=== PATIENT | male | born 1955 | race African-American/Black ===

== ENCOUNTER 2017-06-05 13:05 | Inpatient (IN) | payer BC ==
[~2017-06-05] VITALS: Ht 185.4 cm; Wt 77.2 kg
[~2017-06-05 13:05] MED LIST: COLACE100 M1 PO; COUMADIN5 M2 PO; PERCOCET 5-3251 EACH PO
[2017-06-05 13:49] LABS: ABSOLUTE BASOPHIL COUNT 0.1 /CUMM (0.0-0.2); ABSOLUTE EOSINOPHIL COUNT 0.1 /CUMM (0.0-0.7); ABSOLUTE GRANULOCYTE CT 4.1 /CUMM (1.4-6.5); ABSOLUTE LYMPH COUNT 1.4 /CUMM (1.2-3.4); BASOPHIL % 0.9 % (0.0-2.0); EOSINOPHIL % 1.1 % (0-5); GRANULOCYTE % 62.2 % (42.2-75.2); HEMATOCRIT 49.6 % (42-52); MEAN CORPUSCULAR HGB CONC 33.8 G/DL (33.0-37.0); MEAN CORPUSCULAR VOLUME 88.6 FL (80.0-94.0); MEAN PLATELET VOLUME 8.5 FL (7.4-10.4); PLATELET COUNT 208 /CUMM (130-400); RBC DISTRIBUTION WIDTH 12.4 % (11.5-14.5); RED BLOOD CELL CT 5.59 /CUMM (4.70-6.10); WHITE BLOOD CELL COUNT 6.6 /CUMM (4.8-10.8)
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
--- NOTE | 2017-06-05 15:07 | CT SCAN REPORT ---
EXAMINATION: CT ABDOMEN AND PELVIS WITH CONTRAST CLINICAL INFORMATION: Small bowel obstruction. Abdominal pain. Multiple prior surgeries. COMPARISON: CT scan abdomen pelvis 08/10/2013 TECHNIQUE: Multidetector volumetric imaging was performed of the abdomen and pelvis following IV administration of 94 mL of Optiray 320 intravenous contrast. Sagittal and coronal reformatted images were obtained on the technologist's workstation. DLP: 321.54 mGy-cm FINDINGS: LUNG BASES: The visualized lung bases are unremarkable. LIVER, GALLBLADDER, AND BILIARY TREE: The liver is normal in size, shape, and attenuation. No focal hepatic lesion or biliary ductal dilatation is present. There are multiple small calcified gallstones layering dependently in the neck of the gallbladder. There is no edema around the gallbladder. There is no bile duct dilatation. The extrahepatic CBD measures 5 mm. PANCREAS: Unremarkable. SPLEEN: Unremarkable. ADRENAL GLANDS: Unremarkable. KIDNEYS AND URETERS: The kidneys are normal in size, shape, and attenuation. No hydronephrosis, hydroureter, or calculi seen. No perinephric stranding. BLADDER: Unremarkable. GASTROINTESTINAL TRACT: There is a high-grade small bowel obstruction. Marked distention with air-fluid levels of the proximal and mid small bowel loops. The distal small bowel is decompressed. Transition point is in the left lower quadrant. No distention of the colon. Scattered stool in the colon. The appendix is not identified. MESENTERY: No free air or free fluid. No inflammation. ABDOMINAL WALL: No significant hernia is appreciated. LYMPH NODES: Normal. VASCULAR: Unremarkable. PELVIC VISCERA: Prostate measures 4.9 cm transverse. OSSEOUS STRUCTURES: Status post right hip replacement. Marked arthropathy of the left hip with [id number] contact between femoral head and acetabulum with subchondral cystic changes of the acetabulum femoral head and large bone spurs. Moderate degenerative spondylosis spine with endplate spurring of the lower thoracic and lumbar spine vertebrae. IMPRESSION: 1. High-grade small bowel obstruction. 2. Cholelithiasis. This critical result was discussed with Dr. Clemens on 06/05/2017, 3:00 PM and it was ascertained that the content and urgency of the report was understood at the time of direct communication.
--- NOTE | 2017-06-05 16:26 | History & Physical ---
Soumya Oviedo 06/05/17 1624: General Information and HPI MD Statement: I have seen and personally examined CHERELLE ZAMORA and documented this H&P. The patient is a 61 year old M who presented with a patient stated chief complaint of []. Source of Information: patient Exam Limitations: no limitations History of Present Illness: PT PRESENTS TO ED FROM HOME WITH COMPLAINTS OF NAUSEA AND VOMITING WITH ABDOMINAL PAIN THAT STARTED SUDDENLY 3 DAYS AGO ON 06/02/17. STATES THAT EVERYTIME HE TRIES TO EAT OR DRINK ANYTHING HE VOMITS. DID NOT HAVE A BM FOR THREE DAYS BUT HE DID FINALLY HAVE A BM THIS MORNING AND HAS PASSED FLATUS SINCE BEING IN THE ED. NO BLODDY STOOLS OR EMISIS. NOTES DECREASED URINATION, NO DYSUREA. DENIES CP/SOB/DEWITT Allergies/Medications Allergies: Coded Allergies: NO KNOWN ALLERGIES (10/28/15) Past History Travel History Traveled to [place] past 21 day No Medical History Cardiovascular: hypertension History of MRSA: No History of VRE: No History of CDIFF: No Surgical History Surgical History: EXPLORATORY LAPORATOMY Review of Systems Review of Systems Constitutional: Denies: fever. Cardiovascular: Denies: chest pain. Respiratory: Denies: short of breath. GI: Reports: abdominal pain, nausea, vomiting. Denies: diarrhea, bloody stool. Genitourinary: Denies: dysuria. Exam & Diagnostic Data Last 24 Hrs of Vital Signs/I&O Vital Signs Date Time Temp Pulse Resp B/P B/P Pulse O2 O2 Flow FiO2 Mean Ox Delivery Rate 06/05 1511 Room Air 06/05 1455 96.2 88 20 156/72 97 Room Air 06/05 1327 96.1 101 20 196/79 99 Room Air Intake & Output 06/05 1600 06/05 0800 06/05 0000 Intake Total Output Total Balance Patient 180 lb Weight Weight Reported by Patient Measurement Method Physical Exam General Appearance Alert, No Acute Distress Skin No Rashes (WARM AND DRY) HEENT Atraumatic, EOMI, Mucous Membr. moist/pink Neck Supple (NO BRUITS), No JVD (SUBMANDIBULAR LYMPHADENOPATHY) Cardiovascular Regular Rate, Normal S1, Normal S2 Lungs Clear to Auscultation, Normal Air Movement Abdomen Soft (TENDER TO PALPATION ON LEFT ), No Tenderness (MINIMAL GAURDING), No Hepatospenomegaly (MIDLINE SCAR), No Masses (NO PERITONEAL SIGNS) Neurological Normal Speech, Sensation Intact Extremities No Edema, Normal Pulses Last 24 Hrs of Labs/Tyson: Laboratory Tests 06/05/17 1338: Anion Gap 16, Estimated GFR > 60, BUN/Creatinine Ratio 20.9, Glucose 127 H, Lactic Acid 1.4, Calcium 10.1, Total Bilirubin 3.3 H, AST 43, ALT 30, Alkaline Phosphatase 104, Troponin I < 0.01, Total Protein 7.9, Albumin 4.6, Globulin 3.3 , Albumin/Globulin Ratio 1.4, Amylase 50, Lipase 41, CBC w Diff NO MAN DIFF REQ, RBC 5.59, MCV 88.6, MCH 30.0, MCHC 33.8, RDW 12.4, MPV 8.5, Gran % 62.2, Lymphocytes % 20.8, Monocytes % 15.0 H, Eosinophils % 1.1, Basophils % 0.9, Absolute Granulocytes 4.1, Absolute Lymphocytes 1.4, Absolute Monocytes 1.0 H, Absolute Eosinophils 0.1, Absolute Basophils 0.1 Diagnostic Data Other Results SERVICE DATE: 06/05/17 EXAM TYPE: CAT - CT ABD & PELVIS W IV CONTRAST EXAMINATION: CT ABDOMEN AND PELVIS WITH CONTRAST CLINICAL INFORMATION: Small bowel obstruction. Abdominal pain. Multiple prior surgeries. COMPARISON: CT scan abdomen pelvis 08/10/2013 TECHNIQUE: Multidetector volumetric imaging was performed of the abdomen and pelvis following IV administration of 94 mL of Optiray 320 intravenous contrast. Sagittal and coronal reformatted images were obtained on the technologist's workstation. DLP: 321.54 mGy-cm FINDINGS: LUNG BASES: The visualized lung bases are unremarkable. LIVER, GALLBLADDER, AND BILIARY TREE: The liver is normal in size, shape, and attenuation. No focal hepatic lesion or biliary ductal dilatation is present. There are multiple small calcified gallstones layering dependently in the neck of the gallbladder. There is no edema around the gallbladder. There is no bile duct dilatation. The extrahepatic CBD measures 5 mm. PANCREAS: Unremarkable. SPLEEN: Unremarkable. ADRENAL GLANDS: Unremarkable. KIDNEYS AND URETERS: The kidneys are normal in size, shape, and attenuation. No hydronephrosis, hydroureter, or calculi seen. No perinephric stranding. BLADDER: Unremarkable. GASTROINTESTINAL TRACT: There is a high-grade small bowel obstruction. Marked distention with air-fluid levels of the proximal and mid small bowel loops. The distal small bowel is decompressed. Transition point is in the left lower quadrant. No distention of the colon. Scattered stool in the colon. The appendix is not identified. MESENTERY: No free air or free fluid. No inflammation. ABDOMINAL WALL: No significant hernia is appreciated. LYMPH NODES: Normal. VASCULAR: Unremarkable. PELVIC VISCERA: Prostate measures 4.9 cm transverse. OSSEOUS STRUCTURES: Status post right hip replacement. Marked arthropathy of the left hip with [id number] contact between femoral head and acetabulum with subchondral cystic changes of the acetabulum femoral head and large bone spurs. Moderate degenerative spondylosis spine with endplate spurring of the lower thoracic and lumbar spine vertebrae. IMPRESSION: 1. High-grade small bowel obstruction. 2. Cholelithiasis. This critical result was discussed with Dr. Clemens on 06/05/2017, 3:00 PM and it was ascertained that the content and urgency of the report was understood at the time of direct communication. 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 WILL ADMIT FOR OBSERVATION. BOWEL FUNCTION MAY RETURN SOON PT PASSED FLATUS IN ED AND HAD A BM THIS AM. WILL TRY CONSERVATIVE MANAGEMENT WITH BOWEL REST, IF PT STARTS TO VOMIT AGAIN WILL PLACE NGT. NO NEED FOR SURGICAL IINTERVENTION AT THIS TIME BUT WE WILL FOLLOW HIS PROGRESS CLOSELY ADMIT FOR OBSERVATION NPO WITH IVF, WILL PLACE NGT IF PT STARTS TO VOMIT AGAIN PAIN MANAGEMENT ENCOURAGE AMBULATION DR FARNSWORTH TO SEE THE PATIENT As Ranked By This Provider Problem List: 1. SBO (small bowel obstruction) Core Measures/Misc (12/09) Acute Coronary Syndrome ACS Diagnosis: No Congestive Heart Failure Congestive Heart Failure Diagnosis No Cerebrovascular Accident CVA/TIA Diagnosis: No VTE (View Protocol) VTE Risk Factors Age>40 No Mechanical VTE Prophylaxis d/t N/A MechProphylax Ordered No VTE Pharm Prophylaxis d/t LowRisk-No Interven Req'd Sepsis (View protocol) Sepsis Present: No Erik Farnsworth MD 06/05/17 1711: General Information and HPI MD Statement: I have seen and personally examined CHERELLE ZAMORA and documented this H&P. The patient is a 61 year old M who presented with a patient stated chief complaint of [abdominal pain and vomiting.]. Allergies/Medications Home Med list No Known Home Medications Attending MD Review Statement Attending Statement Attending MD Statement: examined this patient, reviewed images Attending Assessment/Plan: sbo presumed to be due to adhesions from prior laparotomy. Full admission due to need ofr 2-3 days of inpatient medical management of intestinal obstruction and possibility of surgical intervention, should medical managment fail. No clinical or radiographic indication for emergent surgical intervention.
[2017-06-05 18:30] VITALS: BP 143/74
[2017-06-05 22:00] VITALS: BP 144/71
[2017-06-06 06:52] VITALS: BP 146/75
[2017-06-06 08:08] VITALS: BP 142/70
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
[2017-06-06 10:03] LABS: ABSOLUTE BASOPHIL COUNT 0 /CUMM (0.0-0.2); ABSOLUTE EOSINOPHIL COUNT 0 /CUMM (0.0-0.7); ABSOLUTE GRANULOCYTE CT 2.2 /CUMM (1.4-6.5); ABSOLUTE LYMPH COUNT 0.3 /CUMM (1.2-3.4); ABSOLUTE MONOCYTE COUNT 0.5 /CUMM (0.10-0.60); BASOPHIL % 0.1 % (0.0-2.0); EOSINOPHIL % 0.3 % (0-5); GRANULOCYTE % 73.8 % (42.2-75.2); MEAN CORPUSCULAR HGB 30.1 PG (27.0-31.0); MEAN CORPUSCULAR HGB CONC 34.5 G/DL (33.0-37.0); MEAN CORPUSCULAR VOLUME 87.3 FL (80.0-94.0); MEAN PLATELET VOLUME 8.6 FL (7.4-10.4); PLATELET COUNT 173 /CUMM (130-400); RBC DISTRIBUTION WIDTH 12.6 % (11.5-14.5); RED BLOOD CELL CT 5.11 /CUMM (4.70-6.10)
[2017-06-06 10:09] LABS: HEMATOCRIT 44.6 % (42-52)
--- NOTE | 2017-06-06 11:05 | RADIOLOGY REPORT ---
EXAMINATION: XR ABDOMEN MULTIPLE VIEWS CLINICAL INDICATION: Worsening abdominal exam. Presumptive diagnosis of small bowel obstruction. COMPARISON: CT scan of the abdomen and pelvis dated 06/05/2017. TECHNIQUE: 2 views of the abdomen performed on 5 images. FINDINGS: There is abnormal distention of multiple small bowel loops in the abdomen with multiple air-fluid levels seen on the upright view. Findings are similar to the previous CT scan. Enteric tube has been placed and is seen projected in the left upper quadrant in region of the stomach. There is some gas seen within the cecum and in the descending colon. No gas is noted in the rectum. No free air is seen lung bases are clear. Total right hip arthroplasty is partially imaged. Mild vertebral spondylosis in lumbar spine noted. IMPRESSION: 1. Persistent abnormal small bowel dilatation with multiple air-fluid levels. Findings are unchanged from prior CT scan and are suspicious for a high-grade partial or complete small bowel obstruction. 2. No evidence of bowel perforation.
[2017-06-06 12:45] VITALS: BP 162/78
[2017-06-06 14:38] VITALS: BP 161/75
[2017-06-06 21:43] VITALS: BP 149/72
[2017-06-07 06:57] VITALS: BP 133/63
[2017-06-07 08:20] LABS: ABSOLUTE BASOPHIL COUNT 0 /CUMM (0.0-0.2); MEAN CORPUSCULAR HGB 29.8 PG (27.0-31.0); MEAN CORPUSCULAR HGB CONC 33.5 G/DL (33.0-37.0); MEAN CORPUSCULAR VOLUME 88.9 FL (80.0-94.0); MEAN PLATELET VOLUME 8.9 FL (7.4-10.4); PLATELET COUNT 165 /CUMM (130-400); RBC DISTRIBUTION WIDTH 12.8 % (11.5-14.5); RED BLOOD CELL CT 4.73 /CUMM (4.70-6.10); WHITE BLOOD CELL COUNT 4.4 /CUMM (4.8-10.8)
--- NOTE | 2017-06-07 08:40 | PN- General Surgery ---
Surgical Brief Attending Note Brief Attending Note: patient with worsening sbo. plan lysis adhesions today.
[2017-06-07 10:47] LABS: ABSOLUTE EOSINOPHIL COUNT 0.1 /CUMM (0.0-0.7); ABSOLUTE GRANULOCYTE CT 2.8 /CUMM (1.4-6.5); ABSOLUTE LYMPH COUNT 0.5 /CUMM (1.2-3.4); ABSOLUTE MONOCYTE COUNT 0.9 /CUMM (0.10-0.60); BASOPHIL % 0.2 % (0.0-2.0); EOSINOPHIL % 1.3 % (0-5)
[2017-06-07 14:17] VITALS: BP 155/70
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
--- NOTE | 2017-06-07 18:45 | RADIOLOGY REPORT ---
EXAMINATION: XR PORTABLE CHEST CLINICAL INFORMATION: Check NG tube placement. COMPARISON: Chest x-ray from 02/29/2016. TECHNIQUE: Portable frontal view of the chest was obtained. FINDINGS: An NG tube courses down the esophagus and coils within the body of the stomach. No airspace opacities or pleural effusions are evident. The cardiomediastinal silhouette is normal. No acute osseous abnormality is seen. IMPRESSION: NG tube coiling in the body of the stomach. Clear lungs.
[2017-06-07 20:25] VITALS: BP 130/80
--- NOTE | 2017-06-07 20:56 | PN- General Surgery ---
Subjective Subjective: POST-OP NOTE Reports incisional pain and sore throat. NG tube replaced in pacu after being pulled back, with xray confirming placement in stomach. He denies shortness of breath. No chest pains. Not yet out of bed. Objective Vital Signs and I&Os Vital Signs Date Time Temp Pulse Resp B/P B/P Pulse O2 O2 Flow FiO2 Mean Ox Delivery Rate 06/07 1417 97.7 97 18 155/70 97 Room Air 06/07 0657 98.8 103 20 133/63 96 Room Air 06/07 0100 96 06/06 2143 97.7 105 19 149/72 96 Room Air Intake & Output 06/07 1600 06/07 0800 06/07 0000 06/06 1600 06/06 0800 06/06 0000 Intake Total 0 935 1000 1000 Output Total 940 794 8208 550 Balance -400 760 -9524 933 6896 Intake, IV 875 1000 1000 Intake, Oral 0 60 0 0 Intake, Other 0 Number 0 0 Bowel Movements Output, 763 098 2990 250 Gastric Drainage Output, Urine 450 300 Patient 176 lb 177 lb 180 lb Weight Weight Bed scale Measurement Method pacu flowsheet reviewed, urine output 150mls during surgery and 150 mls in pacu Physical Exam: General - alert & oriented x 3. uncomfortable. no acute distress. Lungs - clear bilaterally. no w/r/r. Cardiac - s1s2. reg. Abdomen - soft. midline dressing c/d/i. ng tube re-taped to nose, hooked to wall suction - patricia draining rush colored urine Extremities - warm bilaterally. no c/c/e. calves soft and nontender b/l. athrombics in place. Current Medications: Current Medications Sig/Albert Start time Last Medication Dose Route Stop Time Status Admin Acetaminophen 1,000 MG Q6H 06/07 1845 AC N/A 1 UNIT IV 06/08 1259 Dextrose/Sodium 1,000 ML .Q8H 06/05 1645 DC 06/07 Chloride IV 0919 Heparin Sodium 5,000 UNIT Q8 06/07 2200 AC (Porcine) SC Heparin Sodium 5,000 UNIT Q8 06/06 2200 DC 06/07 (Porcine) SC 0516 Morphine Sulfate 6 MG Q2-3 HRS NEEDED.. 06/07 1845 AC IV Morphine Sulfate 2 MG Q2-3 HRS NEEDED.. 06/07 1830 AC IV Morphine Sulfate 4 MG Q2-3 HRS NEEDED.. 06/07 183 AC 06/07 IV 2048 Morphine Sulfate 4 MG .STK-MED ONE 06/07 0218 DC IM 06/07 021 Morphine Sulfate 2 MG Q4P PRN 06/06 2014 DC IV Morphine Sulfate 4 MG Q4P PRN 06/06 2014 DC 06/07 IV 0932 Ondansetron HCl 4 MG Q6P PRN 06/05 1845 DC 06/06 IV 1651 Pantoprazole Sodium 40 MG DAILY 06/08 1000 AC IV Pantoprazole Sodium 40 MG DAILY 06/06 1256 DC 06/07 IV 0919 Phenol 2 SPRAY Q2P PRN 06/07 1830 AC EXT Phenol 2 SPRAY Q2P PRN 06/06 1000 DC 06/06 EXT 1044 Potassium Chloride 20 MEQ CONTINOUS INFUSION 06/07 183 CAN IV Potassium Chloride 20 MEQ Q6H 06/07 183 AC 06/07 Dextrose/Sodium 1,000 ML IV 2047 Chloride Potassium Chloride 10 MEQ Q1H 06/07 0915 DC 06/07 IV 06/07 1016 1140 Sodium Chloride 500 ML BOLUS ONE 06/07 2100 AC IV 06/07 2159 Sodium Chloride 500 ML BOLUS ONE 06/06 2330 DC 06/06 IV 06/07 0029 2322 Sodium Chloride 500 ML BOLUS ONE 06/07 1999 DC 06/06 IV 06/06 2058 2019 Results Last 48 Hours of Labs: Laboratory Tests 06/07 06/06 0714 1301 Chemistry Sodium (137 - 145 mmol/L) 133 L Potassium (3.5 - 5.1 mmol/L) 3.2 L Chloride (98 - 107 mmol/L) 95 L Carbon Dioxide (22 - 30 mmol/L) 26 Anion Gap (5 - 16) 13 BUN (9 - 20 mg/dL) 15 Creatinine (0.7 - 1.2 mg/dL) 1.0 Estimated GFR (>60 ml/min) > 60 BUN/Creatinine Ratio (7 - 25 %) 15.0 Lactic Acid (0.7 - 2.1 mmol/L) 1.0 Magnesium (1.6 - 2.3 mg/dL) 2.0 Hematology CBC w Diff MAN DIFF ORDERED WBC (4.8 - 10.8 /CUMM) 4.4 L RBC (4.70 - 6.10 /CUMM) 4.73 Hgb (14.0 - 18.0 G/DL) 14.1 Hct (42 - 52 %) 42.0 MCV (80.0 - 94.0 FL) 88.9 MCH (27.0 - 31.0 PG) 29.8 MCHC (33.0 - 37.0 G/DL) 33.5 RDW (11.5 - 14.5 %) 12.8 Plt Count (130 - 400 /CUMM) 165 MPV (7.4 - 10.4 FL) 8.9 Gran % (42.2 - 75.2 %) 65.0 Lymphocytes % (20.5 - 51.1 %) 12.0 L Monocytes % (1.7 - 9.3 %) 21.5 H Eosinophils % (0 - 5 %) 1.3 Basophils % (0.0 - 2.0 %) 0.2 Absolute Granulocytes (1.4 - 6.5 /CUMM) 2.8 Segmented Neutrophils (42.2 - 75.2 %) 27 L Band Neutrophils (0.0 - 5.0 %) 33 H Absolute Lymphocytes (1.2 - 3.4 /CUMM) 0.5 L Lymphocytes (20.5 - 51.1 %) 18 L Monocytes (1.7 - 9.3 %) 21 H Absolute Monocytes (0.10 - 0.60 /CUMM) 0.9 H Eosinophils (0 - 5.0 %) 1 Absolute Eosinophils (0.0 - 0.7 /CUMM) 0.1 Absolute Basophils (0.0 - 0.2 /CUMM) 0 Normocytic RBCs VERIFIED Normochromic RBCs VERIFIED 06/06 0930 Chemistry Sodium (137 - 145 mmol/L) 133 L Potassium (3.5 - 5.1 mmol/L) 3.6 Chloride (98 - 107 mmol/L) 96 L Carbon Dioxide (22 - 30 mmol/L) 24 Anion Gap (5 - 16) 13 BUN (9 - 20 mg/dL) 22 H Creatinine (0.7 - 1.2 mg/dL) 0.9 Estimated GFR (>60 ml/min) > 60 BUN/Creatinine Ratio (7 - 25 %) 24.4 Glucose (65 - 99 mg/dL) 141 H Calcium (8.4 - 10.2 mg/dL) 9.5 Hematology CBC w Diff NO MAN DIFF REQ WBC (4.8 - 10.8 /CUMM) 3.0 L RBC (4.70 - 6.10 /CUMM) 5.11 Hgb (14.0 - 18.0 G/DL) 15.4 Hct (42 - 52 %) 44.6 MCV (80.0 - 94.0 FL) 87.3 MCH (27.0 - 31.0 PG) 30.1 MCHC (33.0 - 37.0 G/DL) 34.5 RDW (11.5 - 14.5 %) 12.6 Plt Count (130 - 400 /CUMM) 173 MPV (7.4 - 10.4 FL) 8.6 Gran % (42.2 - 75.2 %) 73.8 Lymphocytes % (20.5 - 51.1 %) 10.2 L Monocytes % (1.7 - 9.3 %) 15.6 H Eosinophils % (0 - 5 %) 0.3 Basophils % (0.0 - 2.0 %) 0.1 Absolute Granulocytes (1.4 - 6.5 /CUMM) 2.2 Absolute Lymphocytes (1.2 - 3.4 /CUMM) 0.3 L Absolute Monocytes (0.10 - 0.60 /CUMM) 0.5 Absolute Eosinophils (0.0 - 0.7 /CUMM) 0 Absolute Basophils (0.0 - 0.2 /CUMM) 0 Assessment/Plan Assessment/Plan This 61 year old male with hx htn is POD#0 s/p exploratory laparotomy, and lysis of adhesions for sbo npo / ngt ivf@150mls/hr. expect need for re-bolusing monitor urine output strictly via patricia catheter overnight iv tylenol / morphine prn pain control chloraseptic spray prn sore throat hep sc - dvt ppx protonix - gi ppx oob/ambulation tomorrow monitor ng tube drainage no more antibiotics needed per f/u am labs will d/w Core Measures Venous Thromboembolism VTE Risk Factors Age>40 No Mechanical VTE Prophylaxis d/t N/A MechProphylax Ordered No VTE Pharm Prophylaxis d/t LowRisk-No Interven Req'd
[2017-06-08 06:54] VITALS: BP 131/81
[2017-06-08 09:05] LABS: ABSOLUTE BASOPHIL COUNT 0 /CUMM (0.0-0.2); ABSOLUTE EOSINOPHIL COUNT 0 /CUMM (0.0-0.7); ABSOLUTE GRANULOCYTE CT 3.3 /CUMM (1.4-6.5); ABSOLUTE LYMPH COUNT 0.3 /CUMM (1.2-3.4); ABSOLUTE MONOCYTE COUNT 0.7 /CUMM (0.10-0.60); BASOPHIL % 0.1 % (0.0-2.0); EOSINOPHIL % 0 % (0-5); GRANULOCYTE % 75.7 % (42.2-75.2); MEAN CORPUSCULAR HGB 30.4 PG (27.0-31.0); MEAN CORPUSCULAR VOLUME 89.4 FL (80.0-94.0); MEAN PLATELET VOLUME 9.2 FL (7.4-10.4); PLATELET COUNT 153 /CUMM (130-400); RBC DISTRIBUTION WIDTH 12.7 % (11.5-14.5); RED BLOOD CELL CT 4.06 /CUMM (4.70-6.10); WHITE BLOOD CELL COUNT 4.3 /CUMM (4.8-10.8)
--- NOTE | 2017-06-08 10:41 | PN- General Surgery ---
See Addendum Subjective Subjective: Patient feeling a lot better today, he is in good spirits, he has been up and ambulatory. No flatus. Abdominal pain is controlled with medication. NG tube and Patel catheter still in place. Objective Vital Signs and I&Os Vital Signs Date Time Temp Pulse Resp B/P B/P Pulse O2 O2 Flow FiO2 Mean Ox Delivery Rate 06/08 1000 Nasal 2.0L Cannula 06/08 0654 98.1 87 18 131/81 100 06/08 0000 Nasal 2.0L Cannula 06/07 2024 Nasal 2.0L Cannula 06/07 2024 97.6 90 18 130/80 96 Nasal 2.0L Cannula 06/07 1417 97.7 97 18 155/70 97 Room Air Intake & Output 06/08 1600 06/08 0800 06/08 0000 06/07 1600 06/07 0806/07 0000 Intake Total 2400 850 0 935 Output Total 950 220 807 748 2638 Balance 1450 630 -400 760 -1500 Intake, IV 2400 850 875 Intake, Oral 0 0 60 Intake, Other 0 Number 0 Bowel Movements Output, 500 70 248 470 5160 Gastric Drainage Output, Urine 450 150 450 Patient 176 lb Weight Physical Exam: Well-developed well-nourished no apparent distress. HEENT: Atraumatic, extraocular motion intact NG tube in place, dark bilious material output noted Neck: Supple, no lymphadenopathy Respiratory: No respiratory distress Abdomen: Moderate to severely distended, tympanic, no bowel sounds, mild appropriate tenderness throughout, dressing is clean dry and intact Patel catheter in place with dark urine output Extremities: No edema, no calf pain Neuro: Alert and oriented x3 Psych: Mood affect normal, normal memory normal judgment. Skin: Warm and dry, no rash on exposed skin Results Last 48 Hours of Labs: Laboratory Tests 06/08 06/07 06/06 0706 0714 1301 Chemistry Sodium (137 - 145 mmol/L) 136 L 133 L Potassium (3.5 - 5.1 mmol/L) 4.1 3.2 L Chloride (98 - 107 mmol/L) 102 95 L Carbon Dioxide (22 - 30 mmol/L) 25 26 Anion Gap (5 - 16) 9 13 BUN (9 - 20 mg/dL) 15 15 Creatinine (0.7 - 1.2 mg/dL) 0.9 1.0 Estimated GFR (>60 ml/min) > 60 > 60 BUN/Creatinine Ratio (7 - 25 %) 16.7 15.0 Glucose (65 - 99 mg/dL) 135 H Lactic Acid (0.7 - 2.1 mmol/L) 1.0 Magnesium (1.6 - 2.3 mg/dL) 1.9 2.0 Hematology CBC w Diff Pending MAN DIFF ORDERED WBC (4.8 - 10.8 /CUMM) Pending 4.4 L RBC (4.70 - 6.10 /CUMM) Pending 4.73 Hgb (14.0 - 18.0 G/DL) Pending 14.1 Hct (42 - 52 %) Pending 42.0 MCV (80.0 - 94.0 FL) Pending 88.9 MCH (27.0 - 31.0 PG) Pending 29.8 MCHC (33.0 - 37.0 G/DL) Pending 33.5 RDW (11.5 - 14.5 %) Pending 12.8 Plt Count (130 - 400 /CUMM) Pending 165 MPV (7.4 - 10.4 FL) Pending 8.9 Gran % (42.2 - 75.2 %) 65.0 Lymphocytes % (20.5 - 51.1 %) 12.0 L Monocytes % (1.7 - 9.3 %) 21.5 H Eosinophils % (0 - 5 %) 1.3 Basophils % (0.0 - 2.0 %) 0.2 Absolute Granulocytes (1.4 - 6.5 /CUMM) 2.8 Segmented Neutrophils (42.2 - 75.2 %) 27 L Band Neutrophils (0.0 - 5.0 %) 33 H Absolute Lymphocytes (1.2 - 3.4 /CUMM) 0.5 L Lymphocytes (20.5 - 51.1 %) 18 L Monocytes (1.7 - 9.3 %) 21 H Absolute Monocytes (0.10 - 0.60 /CUMM) 0.9 H Eosinophils (0 - 5.0 %) 1 Absolute Eosinophils (0.0 - 0.7 /CUMM) 0.1 Absolute Basophils (0.0 - 0.2 /CUMM) 0 Normocytic RBCs VERIFIED Normochromic RBCs VERIFIED Assessment/Plan Assessment/Plan Postop day 1 status post exploratory laparotomy and extensive lysis of adhesion secondary to small bowel obstruction Continue nothing by mouth, IV fluids, NG tube, Patel catheter to monitor urine output Heparin subcutaneous for DVT prophylaxis Follow daily labs, CBC pending this morning Out of bed ad flakita. activity Pain medication as needed dressing change tomorrow Core Measures Venous Thromboembolism VTE Risk Factors Age>40 No Mechanical VTE Prophylaxis d/t N/A MechProphylax Ordered No VTE Pharm Prophylaxis d/t LowRisk-No Interven Req'd
[2017-06-08 11:37] LABS: HEMATOCRIT 36.3 % (42-52)
[2017-06-08 13:59] VITALS: BP 136/67
--- NOTE | 2017-06-08 19:31 | RADIOLOGY REPORT ---
EXAMINATION: XR ABDOMEN MULTIPLE VIEWS CLINICAL INDICATION: Evaluate for postop pain. Status post exploratory laparotomy for SBO. COMPARISON: None TECHNIQUE: 2 views of the abdomen. FINDINGS: Is a nasogastric tube tip in the fundus. Scattered stool in the right colon. There are small small bowel small air-fluid levels in the midabdomen. No free air under the diaphragm seen. There are postsurgical lolis along the anterior wall. There is a right hip prosthesis and severe left hip arthritic changes. IMPRESSION: Likely postop ileus surgical lolis along the entire anterior abdomen wall. Scattered stool in right colon. Intrinsic tube lies within the fundus of the stomach.
[2017-06-08 21:52] VITALS: BP 143/72
[2017-06-09 06:30] VITALS: BP 140/62
--- NOTE | 2017-06-09 09:18 | PN- General Surgery ---
See Addendum Subjective Subjective: Awake, alert No specific complaints - his pain is tolerable with meds Has not passed gas, no bm Denies nausea - eating ice chips and wants some [place] ice Objective Vital Signs and I&Os Vital Signs Date Time Temp Pulse Resp B/P B/P Pulse O2 O2 Flow FiO2 Mean Ox Delivery Rate 06/09 0630 99.0 100 20 140/62 98 Nasal 2.0L Cannula 06/09 0000 96 Nasal 2.0L Cannula 06/08 2152 97.7 100 20 143/72 96 06/08 1600 Nasal 2.0L Cannula 06/08 1359 97.9 89 20 136/67 100 Nasal 2.0L Cannula 06/08 1000 Nasal 2.0L Cannula Intake & Output 06/09 1600 06/09 0800 06/09 0000 06/08 1600 06/08 0800 06/08 0000 Intake Total 8265 916 3899 2400 850 Output Total 700 2825 950 220 Balance 500 -2225 1200 1450 630 Intake, IV 8672 451 0361 2400 850 Intake, Oral 0 0 0 Number 0 0 Bowel Movements Output, 450 2075 500 70 Gastric Drainage Output, Urine 250 750 450 150 Physical Exam: Tmax 99 General: alert and oriented times three Chest: clear anteriorly bilaterally, RRR Abd: distended, hypoactive bs Ext: warm, no edema Wd: dressed, dry urine output okay ngt - 450/450 past two shifts, green liquid Current Medications: Current Medications Sig/Albert Start time Last Medication Dose Route Stop Time Status Admin Acetaminophen 1,000 MG .STK-MED ONE 06/08 1636 DC IV 06/08 1637 Acetaminophen 1,000 MG Q6H 06/07 2200 DC 06/08 N/A 1 UNIT IV 06/08 1614 1638 Heparin Sodium 5,000 UNIT Q8 06/07 2200 AC 06/09 (Porcine) SC 0604 Ketorolac 15 MG Q6-PRN PRN 06/08 1545 AC 06/09 Tromethamine IV 0437 Morphine Sulfate 6 MG Q2-3 HRS NEEDED.. 06/07 1845 AC IV Morphine Sulfate 2 MG Q2-3 HRS NEEDED.. 06/07 1830 AC IV Morphine Sulfate 4 MG Q2-3 HRS NEEDED.. 06/07 1830 AC 06/09 IV 0603 Pantoprazole Sodium 40 MG DAILY 06/08 1000 AC 06/09 IV 0901 Phenol 2 SPRAY Q2P PRN 06/07 1830 AC 06/09 EXT 0607 Potassium Chloride 20 MEQ Q6H 06/07 1830 AC 06/09 Dextrose/Sodium 1,000 ML IV 0338 Chloride Results Last 48 Hours of Labs: Laboratory Tests 06/09 06/08 0705 0706 Chemistry Sodium (137 - 145 mmol/L) 138 136 L Potassium (3.5 - 5.1 mmol/L) 4.2 4.1 Chloride (98 - 107 mmol/L) 103 102 Carbon Dioxide (22 - 30 mmol/L) 24 25 Anion Gap (5 - 16) 10 9 BUN (9 - 20 mg/dL) 13 15 Creatinine (0.7 - 1.2 mg/dL) 1.0 0.9 Estimated GFR (>60 ml/min) > 60 > 60 BUN/Creatinine Ratio (7 - 25 %) 13.0 16.7 Glucose (65 - 99 mg/dL) 135 H Magnesium (1.6 - 2.3 mg/dL) 2.1 1.9 Hematology CBC w Diff MAN DIFF ORDERED WBC (4.8 - 10.8 /CUMM) 4.3 L RBC (4.70 - 6.10 /CUMM) 4.06 L Hgb (14.0 - 18.0 G/DL) 12.3 L Hct (42 - 52 %) 36.3 L MCV (80.0 - 94.0 FL) 89.4 MCH (27.0 - 31.0 PG) 30.4 MCHC (33.0 - 37.0 G/DL) 34.0 RDW (11.5 - 14.5 %) 12.7 Plt Count (130 - 400 /CUMM) 153 MPV (7.4 - 10.4 FL) 9.2 Gran % (42.2 - 75.2 %) 75.7 H Lymphocytes % (20.5 - 51.1 %) 7.5 L Monocytes % (1.7 - 9.3 %) 16.7 H Eosinophils % (0 - 5 %) 0 Basophils % (0.0 - 2.0 %) 0.1 Absolute Granulocytes (1.4 - 6.5 /CUMM) 3.3 Segmented Neutrophils (42.2 - 75.2 %) 45 Band Neutrophils (0.0 - 5.0 %) 25 H Absolute Lymphocytes (1.2 - 3.4 /CUMM) 0.3 L Lymphocytes (20.5 - 51.1 %) 11 L Monocytes (1.7 - 9.3 %) 19 H Absolute Monocytes (0.10 - 0.60 /CUMM) 0.7 H Absolute Eosinophils (0.0 - 0.7 /CUMM) 0 Absolute Basophils (0.0 - 0.2 /CUMM) 0 Polychromasia 1+ Anisocytosis 1+ Assessment/Plan Assessment/Plan 61yo male s/p extensive brett pod 2 await bowel function continue npo/ivf/ngt dc patricia pain management encouraged ambulation - clamp tube temporarily while ambulating continue protonix/hep sc for ppx Core Measures Venous Thromboembolism VTE Risk Factors Age>40 No Mechanical VTE Prophylaxis d/t N/A MechProphylax Ordered No VTE Pharm Prophylaxis d/t LowRisk-No Interven Req'd
[2017-06-09 14:50] VITALS: BP 142/60
[2017-06-09 23:20] VITALS: BP 167/75
[2017-06-10 06:18] VITALS: BP 161/79
--- NOTE | 2017-06-10 08:04 | PN- General Surgery ---
See Addendum Subjective Subjective: PT IN BED WITH NGT IN PLACE,, STILL WITH HIGH OUTPUT. pAIN WELL CONTROLLED WITH TORADOL. DENIES FEVERS. DENIES SOB/CP/DEWITT FEELING FRUSTRATED WITH LACK OF PROGRESS Objective Vital Signs and I&Os Vital Signs Date Time Temp Pulse Resp B/P B/P Pulse O2 O2 Flow FiO2 Mean Ox Delivery Rate 06/10 0618 98.3 96 20 161/79 99 06/09 2320 98.3 104 16 167/75 97 Room Air 06/09 1450 98.1 98 20 142/60 99 Nasal 2.0L Cannula Intake & Output 06/10 0800 06/10 0000 06/09 1600 06/09 0800 06/09 0000 06/08 1600 Intake Total 510 4755 262 9104 Output Total 175 1000 8735 007 3534 Balance -175 -490 -1125 500 -2225 1200 Intake, IV 500 7650 624 6318 Intake, Oral 10 0 0 Number 0 0 Bowel Movements Output, 600 745 875 0315 Gastric Drainage Output, Urine 175 400 325 250 750 Physical Exam: GEN-NAD RESP-CLEAR CARDIO-RRR ABD-DISTENDED, TENSE, HYPOACTIVE BOWEL SOUNDS. MIDLINE INSICION DRESSING CLEAN AND DRY Current Medications: Current Medications Sig/Albert Start time Last Medication Dose Route Stop Time Status Admin Heparin Sodium 5,000 UNIT Q8 06/07 2200 06/10 (Porcine) SC 0511 Ketorolac 15 MG Q6-PRN PRN 06/08 1545 06/10 Tromethamine IV 0640 Melatonin 3 MG ONCE ONE 06/09 2244 DC 06/09 PO 06/09 2246 2246 Morphine Sulfate 6 MG Q2-3 HRS NEEDED.. 06/07 1845 IV Morphine Sulfate 2 MG Q2-3 HRS NEEDED.. 06/07 1830 IV Morphine Sulfate 4 MG Q2-3 HRS NEEDED.. 06/07 1830 06/09 IV 0603 Pantoprazole Sodium 40 MG DAILY 06/08 1000 AC 06/09 IV 0901 Phenol 2 SPRAY Q2P PRN 06/07 1830 06/09 EXT 0607 Potassium Chloride 20 MEQ Q5H 06/09 1545 06/10 Dextrose/Sodium 1,000 ML IV 0403 Chloride Potassium Chloride 20 MEQ Q6H 06/07 1830 DC 06/09 Dextrose/Sodium 1,000 ML IV 1115 Chloride Results Last 48 Hours of Labs: Laboratory Tests 06/10 06/09 0640 0705 Chemistry Sodium (137 - 145 mmol/L) Pending 138 Potassium (3.5 - 5.1 mmol/L) Pending 4.2 Chloride (98 - 107 mmol/L) Pending 103 Carbon Dioxide (22 - 30 mmol/L) Pending 24 Anion Gap (5 - 16) Pending 10 BUN (9 - 20 mg/dL) Pending 13 Creatinine (0.7 - 1.2 mg/dL) Pending 1.0 Estimated GFR (>60 ml/min) > 60 BUN/Creatinine Ratio (7 - 25 %) Pending 13.0 Magnesium (1.6 - 2.3 mg/dL) 2.1 Hematology CBC w Diff Pending WBC Pending RBC Pending Hgb Pending Hct Pending MCV Pending MCH Pending MCHC Pending RDW Pending Plt Count Pending MPV Pending Assessment/Plan Assessment/Plan 61YO M WITH SBO SP EX LAP LYSIS OF ADHESIONS POD3. STABLE. AWAITING RETURN OF BOWEL FUNCTION CONT NGT UNTIL RETURN OF BOWEL FUNCTION NO NARCOTICS ENCOURAGE AMBULATION, OK TO CLAMP NGT FOR AMBULATION STRICT I's AND O's CONT IVF AM LABS PENDING Core Measures Venous Thromboembolism VTE Risk Factors Age>40 No Mechanical VTE Prophylaxis d/t N/A MechProphylax Ordered No VTE Pharm Prophylaxis d/t LowRisk-No Interven Req'd
[2017-06-10 09:19] LABS: ABSOLUTE BASOPHIL COUNT 0 /CUMM (0.0-0.2); ABSOLUTE GRANULOCYTE CT 6.9 /CUMM (1.4-6.5); ABSOLUTE MONOCYTE COUNT 1.2 /CUMM (0.10-0.60)
[2017-06-10 10:13] LABS: ABSOLUTE EOSINOPHIL COUNT 0.2 /CUMM (0.0-0.7); BASOPHIL % 0.3 % (0.0-2.0); EOSINOPHIL % 2.2 % (0-5); GRANULOCYTE % 73.5 % (42.2-75.2); HEMATOCRIT 36.3 % (42-52); MEAN CORPUSCULAR HGB 29.2 PG (27.0-31.0); MEAN CORPUSCULAR HGB CONC 32.2 G/DL (33.0-37.0); MEAN CORPUSCULAR VOLUME 90.6 FL (80.0-94.0); MEAN PLATELET VOLUME 8.7 FL (7.4-10.4); PLATELET COUNT 206 /CUMM (130-400); RBC DISTRIBUTION WIDTH 13.1 % (11.5-14.5); RED BLOOD CELL CT 4.01 /CUMM (4.70-6.10)
[2017-06-10 10:32] LABS: WHITE BLOOD CELL COUNT 9.4 /CUMM (4.8-10.8)
[2017-06-10 14:31] VITALS: BP 162/76
[2017-06-10 21:57] VITALS: BP 154/76
[2017-06-11 06:49] VITALS: BP 165/80
[2017-06-11 08:37] LABS: ABSOLUTE BASOPHIL COUNT 0 /CUMM (0.0-0.2); ABSOLUTE EOSINOPHIL COUNT 0.1 /CUMM (0.0-0.7); ABSOLUTE GRANULOCYTE CT 7.7 /CUMM (1.4-6.5); ABSOLUTE LYMPH COUNT 1.4 /CUMM (1.2-3.4); ABSOLUTE MONOCYTE COUNT 1.1 /CUMM (0.10-0.60); BASOPHIL % 0.3 % (0.0-2.0); EOSINOPHIL % 1.1 % (0-5); GRANULOCYTE % 74.3 % (42.2-75.2); HEMATOCRIT 35.6 % (42-52); MEAN CORPUSCULAR HGB CONC 33.5 G/DL (33.0-37.0); MEAN CORPUSCULAR VOLUME 89.6 FL (80.0-94.0); MEAN PLATELET VOLUME 8.8 FL (7.4-10.4); PLATELET COUNT 218 /CUMM (130-400); RBC DISTRIBUTION WIDTH 13.6 % (11.5-14.5); RED BLOOD CELL CT 3.97 /CUMM (4.70-6.10); WHITE BLOOD CELL COUNT 10.3 /CUMM (4.8-10.8)
--- NOTE | 2017-06-11 09:35 | PN- General Surgery ---
Subjective Subjective: No events overnight. Patient visibly upset this morning, continues to states "it doesn't matter" when asking questions. Able to tell me he does not have abdominal pain but continues to have nausea, no bowel function. Ambulated 3 times yesterday. Only taking Toradol for pain control. Still with high NGT - denies taking any ice chips or PO. Continues to state he "can't take it anymore. " He states his the anniversary of his mother's is tomorrow and "he will be seeing her." Objective Vital Signs and I&Os Vital Signs Date Time Temp Pulse Resp B/P B/P Pulse O2 O2 Flow FiO2 Mean Ox Delivery Rate 06/11 0649 98.0 97 20 165/80 95 Room Air 06/10 2157 98.0 92 18 154/76 95 Room Air 06/10 1431 98.4 100 20 162/76 99 Intake & Output 06/11 1600 06/11 0800 06/11 0000 06/10 1600 06/10 0800 06/10 0000 Intake Total 1040 483 922 4257 510 Output Total 1450 1600 1950 2575 1000 Balance -410 -1000 -1135 -1175 -490 Intake, IV 1000 379 203 3551 500 Intake, Oral 0 0 0 0 10 Intake, Other 40 40 Number 0 0 Bowel Movements Output, 1150 1200 1100 1800 600 Gastric Drainage Output, Urine 300 400 850 775 400 Physical Exam: Afebrile, VSS. HR 90- low 100s. General: Lying in bed in mild distress. HENT: NGT in place with bilious drainage Cardiac: RRR Pulmonary: CTAB Abdominal: No BS appreciated. Midline incision c/d/i, lolis in place. Tense, incisional tenderness to palpation. No rebound or guarding. Assessment/Plan Assessment/Plan A/P: 61 y/o male admitted w/ high grade SBO POD # 4 s/p ex lap, JOSSE. Surgically stable but this morning stating suicidal ideation secondary to lack of progress. Discussed in depth with patient his current clinical situation and natural progress of course including that it could take numerous days to await bowel function and that by discontinuing his own NGT it could further prolong his recovery and make him more nauseous and sicker than he currently is. Empathized with his situtation but patient continued to state "it doesn't matter" and his ongoing frustration. - Psych consultation placed - Continuous monitoring (1:1 sitter) ordered - Continue NPO/NGT/IVF - Await return of bowel function - Continue to encourage OOB/IS/ambulation - Strict I/Os - AM labs pending - will d/w Dr. Matthew Core Measures Venous Thromboembolism VTE Risk Factors Age>40 No Mechanical VTE Prophylaxis d/t N/A MechProphylax Ordered No VTE Pharm Prophylaxis d/t LowRisk-No Interven Req'd
[2017-06-11 14:32] VITALS: BP 156/58
--- NOTE | 2017-06-11 15:52 | PN- General Surgery ---
Surgical Brief Attending Note Brief Attending Note: As per PA data/assessment. POD4 after extensive lysis adhesions. So far no return of bowel function. At this point in recovery, most likey persistent ileus for which the treatment is medical. Continue medical management. He has not eaten in over one week. If ileus persists tomorrow with high output NG, plan for PICC/TPN. Patient describes similar situation at [facility] many years ago with prolonged ileus and need for TPN. He also describes severe left arm swelling from PICC. Recommend right sided PICC. Check abdominal xray tomorrow as well.
[2017-06-11 21:44] VITALS: BP 160/70
[2017-06-12 06:21] VITALS: BP 158/64
--- NOTE | 2017-06-12 07:42 | PN- General Surgery ---
See Addendum Subjective Subjective: still with high ngt output, belching but denies n/v. no flatus, no bm. some cp this am, now resolved. some abd pain helped w meds. +oob ambulating yesterday. no si now- does not wan to harm himself today, admits that he was having a bad day yesterday but feeling "much better" today Objective Vital Signs and I&Os Vital Signs Date Time Temp Pulse Resp B/P B/P Pulse O2 O2 Flow FiO2 Mean Ox Delivery Rate 06/12 0621 99.2 90 22 158/64 97 Room Air 06/11 2144 98.4 88 160/70 96 Room Air 06/11 1432 98.0 89 20 156/58 98 Room Air Intake & Output 06/12 0800 06/12 0000 06/11 1600 06/11 0800 06/11 0000 06/10 1600 Intake Total 344 770 7993 600 815 Output Total 700 1000 1550 1450 1600 1950 Balance -700 -300 -710 -410 -1000 -1135 Intake, IV 936 937 8075 600 775 Intake, Oral 0 0 0 0 0 Intake, Other 40 40 40 Number 0 0 0 Bowel Movements Output, 450 069 040 4943 1200 1100 Gastric Drainage Output, Urine 250 450 650 300 400 850 Physical Exam: gen- nad card-s1s2 rrr pulm- ctab abd- dist, firm, ttp, midline stapleline in place, no bs appreciated ext- calves soft nt, alps on Current Medications: Current Medications Sig/Albert Start time Last Medication Dose Route Stop Time Status Admin Heparin Sodium 5,000 UNIT Q8 06/07 220 AC 06/12 (Porcine) SC 0520 Ketorolac 15 MG Q6-PRN PRN 06/08 1545 AC 06/12 Tromethamine IV 0702 Morphine Sulfate 6 MG Q2-3 HRS NEEDED.. 06/07 184 AC IV Morphine Sulfate 2 MG Q2-3 HRS NEEDED.. 06/07 183 AC IV Morphine Sulfate 4 MG Q2-3 HRS NEEDED.. 06/07 183 AC 06/12 IV 0050 Pantoprazole Sodium 40 MG DAILY 06/08 1000 AC 06/12 IV 0743 Phenol 2 SPRAY Q2P PRN 06/07 183 AC 06/09 EXT 0607 Potassium Chloride 20 MEQ Q13H 06/10 1100 AC 06/12 Dextrose/Sodium 1,000 ML IV 0222 Chloride Assessment/Plan Assessment/Plan A- POD5 sp ex lap/brett for sbo, with continued high ngt output and no bowel fxn, with s/i yesterday, now with 1:1 sitter, though denies thoughts of self harm today. P- prn pain meds cont ivf lytes, trop pending axr pdg picc line placement today for tpn, nutrition cs pending await psych input, continue 1:1 until evaluated by lexie d/w dr. sweeney Core Measures Venous Thromboembolism VTE Risk Factors Age>40 No Mechanical VTE Prophylaxis d/t N/A MechProphylax Ordered No VTE Pharm Prophylaxis d/t LowRisk-No Interven Req'd
--- NOTE | 2017-06-12 12:16 | RADIOLOGY REPORT ---
EXAMINATION: XR ABDOMEN MULTIPLE VIEWS CLINICAL INDICATION: Postoperative ileus. High nasogastric output. COMPARISON: Chest x-ray 06/08/2017. TECHNIQUE: Upright and supine views of the abdomen were obtained. FINDINGS: An enteric tube is redemonstrated coiled in the fundus of the stomach. There are mildly prominent loops of large bowel containing stool, similar compared to the prior study. Small bowel loops are decompressed on the current study. There is no free air under the hemidiaphragms. There is soft tissue fullness in the mid abdomen, which may be consistent with some intra-abdominal fluid. There are laparotomy lolis, similar compared to the prior study. There are no acute osseous findings; the right hip prosthesis is unchanged. There may be atelectasis/early consolidation at the left base. IMPRESSION: 1. Interval decrease in the caliber of the small bowel loops. Soft tissue fullness in the mid abdomen may be due to intra-abdominal fluid. No free intra-abdominal air is noted. 2. There has been no interval change in the position of the enteric tube. 3. There may be developing consolidation at the left base. Correlate clinically.
--- NOTE | 2017-06-12 13:08 | RADIOLOGY REPORT ---
EXAMINATION: XR PORTABLE CHEST CLINICAL INFORMATION: Right arm PICC line placement. COMPARISON: Chest x-ray 06/07/2017. TECHNIQUE: Portable frontal view of the chest was obtained. FINDINGS: Right PICC line tip terminates at the cavoatrial junction. Enteric tube courses below the diaphragm with the tip projecting over the stomach. There is no focal consolidation, pleural effusion, or pneumothorax. Cardiac silhouette is enlarged and unchanged. Osseous structures are stable. IMPRESSION: Right PICC line tip terminates at the cavoatrial junction. Enteric tube courses below the diaphragm with the tip projecting over the stomach. The lungs remain clear.
[2017-06-12 14:54] VITALS: BP 158/70
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
[2017-06-12 22:10] VITALS: BP 160/62
[2017-06-13 06:36] VITALS: BP 142/60
--- NOTE | 2017-06-13 07:51 | PN- General Surgery ---
See Addendum Subjective Subjective: Pt. states he is burping.Not passing flatus Has discomfort related to NGT; had Toradol with improvement. Monimizing narcotics. Objective Vital Signs and I&Os Vital Signs Date Time Temp Pulse Resp B/P B/P Pulse O2 O2 Flow FiO2 Mean Ox Delivery Rate 06/13 0636 98.0 95 20 142/60 97 Room Air 06/12 2210 98.2 92 18 160/62 97 Room Air 06/12 1454 98.0 89 20 158/70 96 Room Air Intake & Output 06/13 0800 06/13 0000 06/12 1600 06/12 0800 06/12 0000 06/11 1600 Intake Total 578.3 840 700 840 Output Total 200 900 821 332 2528 1550 Balance -200 -321.7 40 -700 -300 -710 Intake, IV 380 800 700 800 Intake, Lipid 33.2 Intake, Oral 0 0 0 0 Intake, Other 40 40 40 Intake, 125.1 TPN/PPN Number 0 0 Bowel Movements Output, 550 150 450 550 900 Gastric Drainage Output, Urine 200 350 650 250 450 650 Patient 171 lb 177 lb Weight Weight Bed scale Measurement Method Al;ert, oriented , appropriate.No distress Lungs clear bilat Herat regular Abdomen distended, soft, mild tympany. Diffusely mildly tender without peritoneal signs. NGT in place with yellow/ brown output , 500 cc over msw, 550 cc over last evening shift Extr. withouit edema. Assessment/Plan Assessment/Plan s/p expl. lap/ extensive JOSSE for obstruction POD #6 Post op ileus Abdominal exam stable. No evidence of bowel fxn yet.High NGT output. Expect prolonged ileus given intraop findings. Imrovement in pattern by AXR yesterday Good urinary output Continue support with TPN, NGt decompression On chemnical DVT prophylaxis. Increase ambulation Will follow labs.today. Minimize narcotics. Pt. had good response to Toradol Psych evaluation appreciated, no need for sitter, minimize disturbance at night to allow for rest. Core Measures Venous Thromboembolism VTE Risk Factors Age>40 No Mechanical VTE Prophylaxis d/t N/A MechProphylax Ordered No VTE Pharm Prophylaxis d/t LowRisk-No Interven Req'd
[2017-06-13 14:41] VITALS: BP 160/70
[2017-06-13 21:48] VITALS: BP 148/70
[2017-06-14 07:25] VITALS: BP 150/68
--- NOTE | 2017-06-14 08:02 | PN- General Surgery ---
See Addendum Subjective Subjective: Patient complaining of worsening chest pain. Describes pain as burning, points to left side of chest as primary source of discomfort. Acknowledges chest pressure. Denies diaphoresis. Denies shortness of breath. Continues to have abdominal pain, states that it is not worsening, states chest pain is far more signficant. Denies flatus, acknowledges burping. No nausea and vomitting. Objective Vital Signs and I&Os Vital Signs Date Time Temp Pulse Resp B/P B/P Pulse O2 O2 Flow FiO2 Mean Ox Delivery Rate 06/14 0725 98.3 92 18 150/68 96 Room Air 06/13 2148 98.9 99 18 148/70 96 Room Air 06/13 1441 98.7 91 20 160/70 97 Room Air Intake & Output 06/14 1600 06/14 0800 06/14 0000 06/13 1600 06/13 0800 06/13 0000 Intake Total 162.6 1044.7 578.3 Output Total 600 100 870 200 900 Balance -600 62.6 -870 844.7 -321.7 Intake, IV 160 380 Intake, Lipid 37.5 551.1 33.2 Intake, Oral 0 Intake, Other 40 Intake, 125.1 333.6 125.1 TPN/PPN Output, 400 100 670 550 Gastric Drainage Output, Urine 200 200 200 350 Patient 160 lb 171 lb Weight Physical Exam: General: Alert and oriented x3, lying comfortably in bed, no distress Cardiac: RRR, s1s2 Pulm: Bilateral lung sounds clear to auscultation, non-labored respiratory effort Abdomen: Distended, soft, lisa-incisional tenderness, wound erythema, no peritonitic signs, hypoactive bowel sounds appreciated on auscultation Extremities: Moves all extremities, distal sensation grossly intact. Skin warm and well perfused. No peripheral edema appreciated. Bilateral calves soft and non-tender. Assessment/Plan Assessment/Plan s/p expl. lap/ extensive JOSSE for obstruction POD #7 Chest discomfort workup: Troponins negative, BNP elevated, likely postoperative and related to prolonged hospital stay EKG NSR Chest xray with out acute findings Surgical post op: -Post op ileus -Abdominal exam stable. No evidence of bowel fxn yet although there is the start of hypoactive bowel sounds today -High NGT output continues. Expecting prolonged ileus given intraop findings. -Good urinary output -Continue support with TPN, NGt decompression -On chemnical DVT prophylaxis. -Increase ambulation -Will follow labs daily for tpn dosing -Minimize narcotics. Pt. had good response to Toradol -Will add h2 simran in addition to ppi -Psych evaluation appreciated, no need for sitter, affect does not appear flat, pt continues to endorse that he is feeling better stating he "had a bad day but feels better and is being patient while he waits for things to improve" Will continue to minimize disturbance at night to allow for rest. Core Measures Venous Thromboembolism VTE Risk Factors Age>40 No Mechanical VTE Prophylaxis d/t N/A MechProphylax Ordered No VTE Pharm Prophylaxis d/t LowRisk-No Interven Req'd
--- NOTE | 2017-06-14 08:14 | RADIOLOGY REPORT ---
EXAMINATION: XR PORTABLE CHEST CLINICAL INFORMATION: NG tube placement. Chest and abdominal pain. COMPARISON: 06/07/2017 and 06/12/2017 TECHNIQUE: Portable frontal view of the chest was obtained. FINDINGS: The nasogastric tube extends below the diaphragm and into the proximal stomach. No pneumoperitoneum. The tip of a central catheter is located in the distal superior vena cava. Mild atelectasis within the left lower lobe is similar in appearance compared to 06/12/2017. No pulmonary edema or pleural effusion. Cardiomediastinal silhouette has normal size and contour. No acute skeletal findings. IMPRESSION: 1. NG tube is positioned within the proximal stomach. 2. Mild atelectasis in the left lung base remains similar in appearance compared to 06/12/2017.
[2017-06-14 14:17] VITALS: BP 170/70
--- NOTE | 2017-06-14 22:25 | Event Note ---
Event Note Event Note: Assessed midline wound. Sanguinopurulent drainage from inferior aspect of incision. erythema surround incision, though difficult to appreciate due to patient's skin tone. very ttp mid-incision. small area open in center of incision, purulent drainage expressed. staple removed, approx 30cc purulent malodorus material expressed. culture taken. additional staple removed at inferior aspect of wound, small amount sanguinopurulent material expressed. both openings milked and flushed w NS. corner of w-d fluff placed in skin openings, covered with dry dressing. Patient tolerated well. Culture sent to lab Will start unasyn for wound infection, pending cx *Also noted that I&Os are very poorly recorded, small amt of urine in urinal at bedside- tea colored. on tpn with additional ivf, will increased rate to total ivf 125/hr. am labs ordered d/w Dr. Baron
[2017-06-14 23:06] VITALS: BP 151/62
[2017-06-15 07:30] VITALS: BP 147/74
[2017-06-15 08:40] LABS: ABSOLUTE BASOPHIL COUNT 0 /CUMM (0.0-0.2); ABSOLUTE EOSINOPHIL COUNT 0 /CUMM (0.0-0.7); ABSOLUTE GRANULOCYTE CT 9.8 /CUMM (1.4-6.5); ABSOLUTE LYMPH COUNT 1.6 /CUMM (1.2-3.4); ABSOLUTE MONOCYTE COUNT 0.8 /CUMM (0.10-0.60); BASOPHIL % 0.2 % (0.0-2.0); EOSINOPHIL % 0.4 % (0-5); GRANULOCYTE % 80.1 % (42.2-75.2); HEMATOCRIT 32.9 % (42-52); MEAN CORPUSCULAR HGB 30.2 PG (27.0-31.0); MEAN CORPUSCULAR VOLUME 88.8 FL (80.0-94.0); MEAN PLATELET VOLUME 8.8 FL (7.4-10.4); PLATELET COUNT 264 /CUMM (130-400); RBC DISTRIBUTION WIDTH 13.2 % (11.5-14.5); RED BLOOD CELL CT 3.71 /CUMM (4.70-6.10); WHITE BLOOD CELL COUNT 12.2 /CUMM (4.8-10.8)
--- NOTE | 2017-06-15 09:39 | PN- General Surgery ---
See Addendum Subjective Subjective: states he is feeling better to day no major issues overnight bedside i&d of abd wound of purulent drainage w/plain packing states he has small amount of gas last evenght ngt output has decreased Objective Vital Signs and I&Os Vital Signs Date Time Temp Pulse Resp B/P B/P Pulse O2 O2 Flow FiO2 Mean Ox Delivery Rate 06/15 0730 98.7 101 20 147/74 99 Room Air 06/14 2306 98.1 99 18 151/62 98 Room Air 06/14 1417 98.4 104 18 170/70 97 Room Air Intake & Output 06/15 1600 06/15 0800 06/15 0000 06/14 1600 06/14 0800 06/14 0000 Intake Total 1079.7 834.0 380 162.6 Output Total 600 440 600 100 Balance 479.7 394.0 380 -600 62.6 Intake, IV 500 200 380 Intake, Lipid 102.2 94.0 37.5 Intake, Oral 0 0 Intake, Other 40 40 Intake, 437.5 500 125.1 TPN/PPN Number 0 0 Bowel Movements Output, 400 290 400 100 Gastric Drainage Output, Urine 200 150 200 Patient 166 lb 160 lb Weight Weight Bed scale Measurement Method Physical Exam: cv; rrr lungs; good air movement abd; distended, scant bs mucopurulent drainage on drsg for i&d yesterday difficult to assess fro redness due to patinets skin color ext: warm, distal cms intact no calf tenderness Assessment/Plan Assessment/Plan sob, with slowly improving bowel fxn ngt output remains elevated infected incisional seroma, i&d at bedside yesterday. leukocytosis 12.2(10.3, 9.4) afebrile plan cont tpn npo for now f/u wound cx's cont iv unasyn Core Measures Venous Thromboembolism VTE Risk Factors Age>40 No Mechanical VTE Prophylaxis d/t N/A MechProphylax Ordered No VTE Pharm Prophylaxis d/t LowRisk-No Interven Req'd
[2017-06-15 15:26] VITALS: BP 150/70
[2017-06-15 23:51] VITALS: BP 146/69
[2017-06-16 07:01] VITALS: BP 138/82
--- NOTE | 2017-06-16 07:57 | PN- General Surgery ---
See Addendum Subjective Subjective: Reports +flatus and a few bms since saturday night. NG tube emptied 1000mls overnight. He reports ambulating without difficulty. No dizziness. No shortness of breath. No chest pains. Objective Vital Signs and I&Os Vital Signs Date Time Temp Pulse Resp B/P B/P Pulse O2 O2 Flow FiO2 Mean Ox Delivery Rate 06/16 0701 98.5 92 18 138/82 96 Room Air 06/15 2351 98.0 89 18 146/69 99 Room Air 06/15 1526 98.9 96 20 150/70 98 Room Air Intake & Output 06/16 0800 06/16 0000 06/15 1600 06/15 0800 06/15 0000 06/14 1600 Intake Total 1323.2 972.1 1056.8 1079.7 834.0 380 Output Total 5356 252 1568 600 440 Balance -26.8 222.1 56.8 479.7 394.0 380 Intake, IV 400 350 400 500 200 380 Intake, Lipid 116.8 102.2 116.8 102.2 94.0 Intake, Oral 60 0 0 0 0 Intake, Other 80 20 40 40 40 Intake, 666.4 499.9 500 437.5 500 TPN/PPN Number 0 0 0 0 0 Bowel Movements Output, 1000 500 500 400 290 Gastric Drainage Output, Urine 350 250 500 200 150 Patient 166 lb 166 lb 160 lb Weight Weight Bed scale Bed scale Measurement Method Physical Exam: General - alert & oriented x 3. comfortable. no acute distress. Lungs - clear bilaterally. no w/r/r. Cardiac - s1s2. reg. Abdomen - dressings removed. seropurulent drainage on fluffs/jeanine. no extending erythema. lolis otherwise intact. ng tube with bilious drainage (1000 overnight) Extremities - warm b/l. no c/c/e. calves soft and nontender b/l. Current Medications: Current Medications Sig/Albert Start time Last Medication Dose Route Stop Time Status Admin Ampicillin Sodium/ 1,500 MG Q6 06/149 AC 06/16 Sulbactam Sodium IV 0532 Sodium Chloride 100 ML Dextrose/Sodium 1,000 ML Q20H 06/12 1800 AC 06/16 Chloride IV 0533 Fat Emulsion 350 ML Q24H 06/15 1900 AC 06/15 Intravenous IV 03/1858 Fat Emulsion 350 ML Q24H 06/14 1900 DC 06/14 Intravenous IV 06/15 Heparin Sodium 5,000 UNIT Q8 06/07 2200 AC 06/16 (Porcine) SC 0532 Ketorolac 30 MG .STK-MED ONE 06/15 0845 DC Tromethamine IM 06/15 0846 Ketorolac 15 MG Q6-PRN PRN 06/08 1545 AC 06/16 Tromethamine IV 0233 Lorazepam 1 MG QPM PRN 06/12 1045 AC 06/15 IV 2223 Pantoprazole Sodium 40 MG DAILY 06/08 1000 AC 06/15 IV 0849 Phenol 2 SPRAY Q2P PRN 06/07 1830 AC 06/15 EXT 205 Total Parenteral 1 UNIT 06/15 1900 AC 06/15 Nutrition IV 06/16 Total Parenteral 1 UNIT 19006/14 190 DC 06/14 Nutrition IV 06/15 Results Last 48 Hours of Labs: Laboratory Tests 06/16 06/15 06/14 0545 0650 0808 Chemistry Sodium (137 - 145 mmol/L) Pending 139 Potassium (3.5 - 5.1 mmol/L) Pending 3.4 L Chloride (98 - 107 mmol/L) Pending 100 Carbon Dioxide (22 - 30 mmol/L) Pending 26 Anion Gap (5 - 16) Pending 13 BUN (9 - 20 mg/dL) Pending 18 Creatinine (0.7 - 1.2 mg/dL) Pending 0.8 Estimated GFR (>60 ml/min) > 60 BUN/Creatinine Ratio (7 - 25 %) Pending 22.5 Phosphorus (2.5 - 4.5 mg/dL) Pending 3.5 Magnesium (1.6 - 2.3 mg/dL) Pending 2.0 Troponin I (<0.11 ng/ml) < 0.01 Kea-F-Faspcutnwdm Pept (<125 pg/mL) 883 H Hematology CBC w Diff Pending NO MAN DIFF REQ WBC (4.8 - 10.8 /CUMM) Pending 12.2 H RBC (4.70 - 6.10 /CUMM) Pending 3.71 L Hgb (14.0 - 18.0 G/DL) Pending 11.2 L Hct (42 - 52 %) Pending 32.9 L MCV (80.0 - 94.0 FL) Pending 88.8 MCH (27.0 - 31.0 PG) Pending 30.2 MCHC (33.0 - 37.0 G/DL) Pending 34.0 RDW (11.5 - 14.5 %) Pending 13.2 Plt Count (130 - 400 /CUMM) Pending 264 MPV (7.4 - 10.4 FL) Pending 8.8 Gran % (42.2 - 75.2 %) 80.1 H Lymphocytes % (20.5 - 51.1 %) 12.8 L Monocytes % (1.7 - 9.3 %) 6.5 Eosinophils % (0 - 5 %) 0.4 Basophils % (0.0 - 2.0 %) 0.2 Absolute Granulocytes (1.4 - 6.5 /CUMM) 9.8 H Absolute Lymphocytes (1.2 - 3.4 /CUMM) 1.6 Absolute Monocytes (0.10 - 0.60 /CUMM) 0.8 H Absolute Eosinophils (0.0 - 0.7 /CUMM) 0 Absolute Basophils (0.0 - 0.2 /CUMM) 0 Assessment/Plan Assessment/Plan This 61 year old male is POD#9 s/p ex lap, extensive JOSSE for obstruction, expected post-op ileus, tpn ongoing for prolonged npo status npo / ivf / ngt f/u labs continue tpn iv unasyn for infected seroma oob/ambulation hep sc - dvt ppx protonix - gi ppx dressings changed. plain packing gently replaced will d/w Core Measures Venous Thromboembolism VTE Risk Factors Age>40 No Mechanical VTE Prophylaxis d/t N/A MechProphylax Ordered No VTE Pharm Prophylaxis d/t LowRisk-No Interven Req'd
[2017-06-16 08:22] LABS: ABSOLUTE BASOPHIL COUNT 0 /CUMM (0.0-0.2); ABSOLUTE EOSINOPHIL COUNT 0.1 /CUMM (0.0-0.7); ABSOLUTE GRANULOCYTE CT 5.8 /CUMM (1.4-6.5); ABSOLUTE LYMPH COUNT 1.6 /CUMM (1.2-3.4); ABSOLUTE MONOCYTE COUNT 0.8 /CUMM (0.10-0.60); BASOPHIL % 0.3 % (0.0-2.0); EOSINOPHIL % 0.7 % (0-5); GRANULOCYTE % 69.6 % (42.2-75.2); HEMATOCRIT 34.2 % (42-52); MEAN CORPUSCULAR HGB 30.1 PG (27.0-31.0); MEAN CORPUSCULAR HGB CONC 33.9 G/DL (33.0-37.0); MEAN CORPUSCULAR VOLUME 88.9 FL (80.0-94.0); MEAN PLATELET VOLUME 8.6 FL (7.4-10.4); PLATELET COUNT 247 /CUMM (130-400); RBC DISTRIBUTION WIDTH 13.2 % (11.5-14.5); RED BLOOD CELL CT 3.84 /CUMM (4.70-6.10); WHITE BLOOD CELL COUNT 8.3 /CUMM (4.8-10.8)
[2017-06-16 14:45] VITALS: BP 142/80
[2017-06-16 21:35] VITALS: BP 130/72
[2017-06-17 06:24] VITALS: BP 132/64
[2017-06-17 07:54] LABS: ABSOLUTE BASOPHIL COUNT 0 /CUMM (0.0-0.2); ABSOLUTE EOSINOPHIL COUNT 0.1 /CUMM (0.0-0.7); ABSOLUTE GRANULOCYTE CT 7.4 /CUMM (1.4-6.5); ABSOLUTE LYMPH COUNT 1.6 /CUMM (1.2-3.4); ABSOLUTE MONOCYTE COUNT 0.6 /CUMM (0.10-0.60); BASOPHIL % 0.4 % (0.0-2.0); EOSINOPHIL % 0.6 % (0-5); GRANULOCYTE % 75.9 % (42.2-75.2); HEMATOCRIT 34.6 % (42-52); MEAN CORPUSCULAR HGB 29.6 PG (27.0-31.0); MEAN CORPUSCULAR HGB CONC 33.2 G/DL (33.0-37.0); MEAN CORPUSCULAR VOLUME 89.2 FL (80.0-94.0); MEAN PLATELET VOLUME 8.2 FL (7.4-10.4); PLATELET COUNT 271 /CUMM (130-400); RED BLOOD CELL CT 3.88 /CUMM (4.70-6.10); WHITE BLOOD CELL COUNT 9.7 /CUMM (4.8-10.8)
--- NOTE | 2017-06-17 08:23 | PN- General Surgery ---
See Addendum Subjective Subjective: PT in bed, very frustrated with lack of progress. Denies pain. Is ambulating several times a day. only taking toradol for pain, no narcotics. Voiding. Pt reports passing flatus over the weekend but NO BMs. pt says his nose is very tender from the NGT, even hurts when he turns is head. Objective Vital Signs and I&Os Vital Signs Date Time Temp Pulse Resp B/P B/P Pulse O2 O2 Flow FiO2 Mean Ox Delivery Rate 06/17 0624 98.1 90 20 132/64 99 Room Air 06/16 2135 97.9 92 16 130/72 99 Room Air 06/16 1445 97.9 80 22 142/80 99 Room Air Intake & Output 06/17 1600 06/17 0800 06/17 0000 06/16 1600 06/16 0800 06/16 0000 Intake Total 933.2 1223.2 1323.2 972.1 Output Total 968 904 5093 1350 750 Balance -450 233.2 -301.8 -26.8 222.1 Intake, IV 150 400 400 350 Intake, Lipid 116.8 116.8 116.8 102.2 Intake, Oral 0 0 60 0 Intake, Other 40 80 20 Intake, 666.4 666.4 666.4 499.9 TPN/PPN Number 0 0 0 0 Bowel Movements Output, 147 488 9257 500 Gastric Drainage Output, Urine 450 550 975 350 250 Patient 168 lb 166 lb Weight Weight Bed scale Measurement Method Physical Exam: gen- NAD, NGT in place resp- clear bilaterally cardio-RRR abd-ND, no BS, lolis in midline with 2 areas packed with wick and purulent drainage. dressings changed. Assessment/Plan Assessment/Plan 61yo M SP ex lap with extrensive JOSSE for SBO on 06/07. Awaiting return of bowel function. NGT put out 550cc over last 12 hours. Cont NGT for now on low wall suction. May consider clamping trial Cont TPN, following daily labs encourage ambulation Cont daily packing and abx for midline wound infection dvt ppx- hsq and alps Will discuss with dr Matthew Core Measures Venous Thromboembolism VTE Risk Factors Age>40 No Mechanical VTE Prophylaxis d/t N/A MechProphylax Ordered No VTE Pharm Prophylaxis d/t LowRisk-No Interven Req'd
[2017-06-17 15:28] VITALS: BP 162/70
--- NOTE | 2017-06-17 19:37 | CT SCAN REPORT ---
EXAMINATION: CT ABDOMEN AND PELVIS WITHOUT CONTRAST CLINICAL INFORMATION: Small bowel obstruction. Vomiting. COMPARISON: CT abdomen and pelvis 06/05/2017. TECHNIQUE: Multidetector volumetric imaging was performed from the superior aspect of the liver through the pubic symphysis. Sagittal and coronal reformatted images were obtained on the technologist's workstation. DLP: 300 mGy-cm FINDINGS: LUNG BASES: Linear atelectasis in the bilateral lower lobes. LIVER, GALLBLADDER, AND BILIARY TREE: The liver is normal in size, shape, and attenuation. No focal hepatic lesion or biliary ductal dilatation is present. Cholelithiasis without evidence of cholecystitis. PANCREAS: Unremarkable. SPLEEN: Unremarkable. ADRENAL GLANDS: Unremarkable. KIDNEYS AND URETERS: The kidneys are normal in size, shape, and attenuation. No hydronephrosis, hydroureter, or calculi seen. No perinephric stranding. BLADDER: Unremarkable. GASTROINTESTINAL TRACT: Dilated loops of small bowel are redemonstrated, with decompression of the terminal ileum. A discrete transition point is not delineated on current exam. There is a degree of mesenteric edema within the small bowel mesentery. No colonic dilatation. ABDOMINAL WALL: Postsurgical changes of the ventral abdomen. LYMPH NODES: No bulky adenopathy. VASCULAR: Minimal atherosclerotic calcification. PELVIC VISCERA: Beam hardening artifact limits evaluation of the pelvis. Prostate gland is enlarged. OSSEOUS STRUCTURES: No acute osseous abnormalities. Hardware from right hip arthroplasty demonstrated. Severe degenerative changes at the left hip. IMPRESSION: 1. Dilated small bowel loops with associated mesenteric edema. Gradual transition with decompression of the terminal ileum. Decompression of the colon. Findings are most concerning for small bowel obstruction (favored over postoperative ileus). 2. Postsurgical changes of the ventral abdominal wall. 3. Cholelithiasis without evidence of cholecystitis. 4. Additional non-acute findings as above.
[2017-06-17 22:26] VITALS: BP 140/64
[2017-06-18 07:02] VITALS: BP 132/62
--- NOTE | 2017-06-18 07:29 | PN- General Surgery ---
See Addendum Subjective Subjective: Patient reports feeling significantly improved today after the reinsertion of his NG tube yesterday. He reports continued flatus and bowel movements. He denies any nausea or vomiting on the NG tube. No further bleeding from the naris. He has been ambulating and voiding without any difficulty. His pain is well-controlled. He denies any other issues or complaints. Objective Vital Signs and I&Os Vital Signs Date Time Temp Pulse Resp B/P B/P Pulse O2 O2 Flow FiO2 Mean Ox Delivery Rate 06/18 0702 98.3 105 18 132/62 97 06/17 2226 100.2 106 18 140/64 96 Room Air 06/17 1528 99.2 96 20 162/70 99 Room Air 06/17 0800 98 Room Air Intake & Output 06/18 0800 06/18 0000 06/17 1600 06/17 0800 06/17 0000 06/16 1600 Intake Total 665 989 6180.20 933.2 1223.2 Output Total 450 202 501 810 084 3365 Balance 400 598 -501 333.20 233.2 -301.8 Intake, IV 200 400 150 400 Intake, Lipid 116.8 116.8 116.8 Intake, Oral 0 0 Intake, Other 650 800 40 Intake, 666.40 666.4 666.4 TPN/PPN Number 2 0 0 Bowel Movements Output, 2 Emesis Output, 100 400 150 550 Gastric Drainage Output, Stool 1 Output, Urine 450 200 400 450 550 975 Patient 166 lb 168 lb Weight Physical Exam: General: Alert, awake, no acute distress Abdomen: Distended, soft, tympanitic to percussion with some areas of dullness, nontender to palpation without any rebound or guarding, dressing was taken down midline incision was stapled in place except 2 areas with jeanine, the jeanine were removed and replaced noted to be saturated with sangopurulent fluid, topped with fluff gauze and ABD pad Extremities: No clubbing, cyanosis, or edema Current Medications: Current Medications Sig/Albert Start time Last Medication Dose Route Stop Time Status Admin Acetaminophen 1,000 MG Q6P PRN 06/17 1415 AC 06/18 N/A 1 UNIT IV 0300 Ampicillin Sodium/ 1,500 MG Q6 06/14 2359 DC 06/18 Sulbactam Sodium IV 0543 Sodium Chloride 100 ML Ceftriaxone Sodium 1,000 MG DAILY 06/18 0630 AC IV Dextrose/Sodium 1,000 ML Q20H 06/12 1800 AC 06/18 Chloride IV 0604 Fat Emulsion 350 ML 1900 06/17 1900 AC 06/17 Intravenous IV 06/18 Fat Emulsion 350 ML 1900 06/16 1900 DC 06/16 Intravenous IV 06/17 Heparin Sodium 5,000 UNIT Q8 06/07 2200 AC 06/18 (Porcine) SC 0542 Ketorolac 30 MG .STK-MED ONE 06/17 0908 DC Tromethamine IM 06/17 0909 Ketorolac 15 MG Q6-PRN PRN 06/08 1545 DC 06/17 Tromethamine IV 09 Lorazepam 1 MG QPM PRN 06/12 1045 AC 06/17 IV 2235 Ondansetron HCl 4 MG Q6P PRN 06/17 1800 AC 06/17 IV 1849 Pantoprazole Sodium 40 MG DAILY 06/08 1000 AC 06/17 IV 0931 Phenol 2 SPRAY Q2P PRN 06/07 1830 AC 06/17 EXT 0930 Sodium Chloride 2 SPRAY Q4P PRN 06/17 1015 AC CHACHO Total Parenteral 1 UNIT 06/17 1900 AC 06/17 Nutrition IV 06/18 Total Parenteral 1 UNIT 1900 06/16 1900 DC 06/16 Nutrition IV 06/17 Results Last 48 Hours of Labs: Laboratory Tests 06/18 06/17 0559 0630 Chemistry Sodium (137 - 145 mmol/L) Pending 139 Potassium (3.5 - 5.1 mmol/L) Pending 4.1 Chloride (98 - 107 mmol/L) Pending 101 Carbon Dioxide (22 - 30 mmol/L) Pending 26 Anion Gap (5 - 16) Pending 12 BUN (9 - 20 mg/dL) Pending 16 Creatinine (0.7 - 1.2 mg/dL) Pending 0.8 Estimated GFR (>60 ml/min) > 60 BUN/Creatinine Ratio (7 - 25 %) Pending 20.0 Phosphorus (2.5 - 4.5 mg/dL) Pending 3.6 Magnesium (1.6 - 2.3 mg/dL) Pending 1.8 Hematology CBC w Diff NO MAN DIFF REQ WBC (4.8 - 10.8 /CUMM) 9.7 RBC (4.70 - 6.10 /CUMM) 3.88 L Hgb (14.0 - 18.0 G/DL) 11.5 L Hct (42 - 52 %) 34.6 L MCV (80.0 - 94.0 FL) 89.2 MCH (27.0 - 31.0 PG) 29.6 MCHC (33.0 - 37.0 G/DL) 33.2 RDW (11.5 - 14.5 %) 13.0 Plt Count (130 - 400 /CUMM) 271 MPV (7.4 - 10.4 FL) 8.2 Gran % (42.2 - 75.2 %) 75.9 H Lymphocytes % (20.5 - 51.1 %) 16.7 L Monocytes % (1.7 - 9.3 %) 6.4 Eosinophils % (0 - 5 %) 0.6 Basophils % (0.0 - 2.0 %) 0.4 Absolute Granulocytes (1.4 - 6.5 /CUMM) 7.4 H Absolute Lymphocytes (1.2 - 3.4 /CUMM) 1.6 Absolute Monocytes (0.10 - 0.60 /CUMM) 0.6 Absolute Eosinophils (0.0 - 0.7 /CUMM) 0.1 Absolute Basophils (0.0 - 0.2 /CUMM) 0 Recent Imaging Studies: CT scan of the abdomen and pelvis 06/11/1617: 1. Dilated small bowel loops with associated mesenteric edema. Gradual transition with decompression of the terminal ileum. Decompression of the colon. Findings are most concerning for small bowel obstruction (favored over postoperative ileus). 2. Postsurgical changes of the ventral abdominal wall. 3. Cholelithiasis without evidence of cholecystitis. Assessment/Plan Assessment/Plan This is a 61-year-old male with past medical history significant for hypertension who is admitted to the surgical service with an SBO, he is postoperative day #11 status post exploratory laparotomy with lysis of adhesions , subsequent PICC placement on 06/12/2017 for prolonged ileus, and now with 2 areas of a surgical site wound infection status post removal of lolis and now undergoing wound care. Plan for today is as follows: 1. Nothing by mouth/TPN/NG tube to continuous low wall suction 2. Ambulate, incentive spirometry, turn, cough, and deep breathing techniques 3. Continue when necessary analgesics and antiemetics 4. Wound culture was obtained and necessitates change in antibiotics, patient switched from Unasyn to Rocephin 5. Continue GI and DVT prophylaxis 6. Continue daily dressing changes 7. Case will be discussed with Dr. Matthew to ensure he is in agreement with plan of care Problem List: 1. SBO (small bowel obstruction) 2. S/P exploratory laparotomy Core Measures Venous Thromboembolism VTE Risk Factors Age>40 No Mechanical VTE Prophylaxis d/t N/A MechProphylax Ordered No VTE Pharm Prophylaxis d/t LowRisk-No Interven Req'd
--- NOTE | 2017-06-18 10:13 | RADIOLOGY REPORT ---
EXAMINATION: XR ABDOMEN WITH PA CHEST CLINICAL INDICATION: Small bowel obstruction. Status post NG tube placement. COMPARISON: CT of the abdomen and pelvis done on 06/17/2017. TECHNIQUE: Supine, upright frontal view of the abdomen and upright frontal view of the chest. FINDINGS: Abdomen: There are multiple centrally located dilated small bowel loops containing air-fluid levels noted, similar to prior CT study. Rectal gas is still present. There is no abnormal mass or calcification present. The tip of the enteric tube is seen projecting to the region of the fundus. Chest: Bibasilar airspace disease is noted, likely represents atelectasis, infiltrate or combination thereof. There is a right-sided PICC line present, tip is projecting at the cavoatrial junction. The cardiomediastinal silhouette is within normal limits. IMPRESSION: 1. Features consistent with small bowel obstruction, similar to prior CT study dated 06/17/2017. 2. Tip of the enteric tube is seen projecting to the region of the fundus of the stomach. 3. No radiographic evidence of any bowel perforation or any abnormal soft tissue mass or calcification. 4. Bibasilar nonspecific airspace disease. 5. The tip of the right-sided PICC line is in good position.
[2017-06-18 15:04] VITALS: BP 134/58
[2017-06-18 22:17] VITALS: BP 110/60
[2017-06-19 06:05] VITALS: BP 134/62
--- NOTE | 2017-06-19 07:11 | PN- Student ---
Chandana Mcallister 06/19/17 0705: Subjective Subjective: PATIENT STATES HE IS FEELING BETTER THAN YESTERDAY, NO OVERNIGHT EVENTS. HE REPORTS MILD INCISIONAL PAIN THAT IS TEMPORARILY CONTROLED WITH IV TYLENOL. HE DENIES N/V AND BELIEVES HE PASSED FLATUS LAST NIGHT ONE TIME, NO BM SINCE NGT REINSERTION. PATIENT HAS BEEN OOB MULTIPLE TIMES IN THE LAST 24 HOURS. PATIENT DENIES HEADACHE, CHEST PAIN, SOB, DYSURIA, FEVER, CHILLS, AND MYALGIA. Objective Objective: VITALS: TEMP- 97.9 DEGREES F PULSE: 93 BPM RESP: 16 BREATHS/MIN BP: 134/62 O2: 97% RA I/O: 2666/2950. 700ML BILOUS LIQUID FROM NGT IN PAST 12 HOURS GENERAL: RESTING COMFORTABLY, NAD, ACTIVELY PARTICIPATED IN EXAM ABDOMEN: MODERATE DISTENTION, DRESSINGS C/D/I, ABSENT BOWEL SOUNDS, APPROPRIATE INCISIONAL TENDERNESS, TYMPANIC TO PERCUSSION CARDIAC: RRR, NO MRG PULM: CTAB, NO ACCESSORY MUSCLE USAGE EXTREMITIES, NO EDEMA, GROSS MOTOR AND NEURO FUNCTION INTACT B/L LE, DP/PT PULSES 2+ Results Results: Laboratory Tests 06/19/17 0530: Anion Gap 16, Phosphorus 9.1 H, Magnesium 2.5 H, Prealbumin 12.6 L, Triglycerides 670 H 06/18/17 0845: Anion Gap 12, Estimated GFR > 60, BUN/Creatinine Ratio 18.8, Phosphorus 3.8, Magnesium 1.9 06/17/17 0630: Anion Gap 12, Estimated GFR > 60, BUN/Creatinine Ratio 20.0, Phosphorus 3.6, Magnesium 1.8, CBC w Diff NO MAN DIFF REQ, RBC 3.88 L, MCV 89.2, MCH 29.6, MCHC 33.2, RDW 13.0, MPV 8.2, Gran % 75.9 H, Lymphocytes % 16.7 L, Monocytes % 6.4, Eosinophils % 0.6, Basophils % 0.4, Absolute Granulocytes 7.4 H, Absolute Lymphocytes 1.6, Absolute Monocytes 0.6, Absolute Eosinophils 0.1, Absolute Basophils 0 Assessment/Plan Assessment: PATIENT IS A 61 Y/O MALE, PMH OF HTN, POD# 12 FROM EX LAP FOR SBO. CONTINUING TO AWAIT RETURN OF BOWEL FUNCTION. ABDOMINAL INCISION HEALING WELL. PATIENTS POTASSIUM ELEVATED (7.3) SINCE LAST LABS. Plan: CONTINUE NPO AND TPN PPX- COMPRESSION STOCKINGS, OOB TOLERATED TYLENOL PRN PAIN, HOLD TORADOL CONTINUE [place] FOR INCISION INFECTION CONTINUE HOME MEDICATIONS ELEVATED POTASSIUM: POSSIBLE KAYEXALATE VS INSULIN. ?ECG Mariam SALEHLaura 06/19/17 0753: Subjective Subjective: feeling ok, minimal discomfort- asking for toradol instead of iv tylenol. questionable flatus x1, no bm. no n/v. ngt in place, some sore throat. no cp/ sob. has been oob walking daily Objective Objective: NGT: green bilious in canister, last 8hr shifts: 700/700/500 UO: voiding, concentrated, last 8hr shifts: 350+/500/1000 ABD: distended, minimally ttp, no bs. dressing changed- seropurulent drainage on packing, wound edges clean without erythema, flushed w NS, jeanine replaces and covered w dry gauze. Results Results: Laboratory Tests Redrawn, likely drawn too close to TPN Assessment/Plan Assessment: A/P POD12 with continued ileus and superficial wound infection, with highly abnormal lytes- likely in error. stable, await bowel fxn -redraw labs pdg - toradol prn ordered- monitor for bleeding -cont tpn, ivf - strict i&Os - hep sq, alps - oob, ambulate - rocephin for wound, daily dressing change - cont ngt to [facility] -will genoveva attending
--- NOTE | 2017-06-19 13:20 | PN- General Surgery ---
Surgical Brief Attending Note Brief Attending Note: Patient reports small amount flatus overnight. denies pain, distension. ng output remains moderate. Suspect persistent ileus/partial sbo. continue medical support with TPN and bowel rest. f/u xray tomorrow.
[2017-06-19 14:56] VITALS: BP 138/66
[2017-06-19 20:53] VITALS: BP 150/68
[2017-06-20 06:08] VITALS: BP 150/70
--- NOTE | 2017-06-20 07:55 | PN- General Surgery ---
See Addendum Subjective Subjective: Patient feeling slightly better. No acute events overnight. NG output is less, down to 200 overnight, he is passing flatus, mild belching, with no worsening abdominal pain, no fever or flulike illness. He is in good spirits Objective Vital Signs and I&Os Vital Signs Date Time Temp Pulse Resp B/P B/P Pulse O2 O2 Flow FiO2 Mean Ox Delivery Rate 06/20 0608 98.5 96 20 150/70 98 06/19 2053 99.4 97 18 150/68 98 Room Air 06/19 1456 98.6 98 18 138/66 99 Room Air Intake & Output 06/20 0800 06/20 0000 06/19 1600 06/19 0800 06/19 0000 06/18 1600 Intake Total 983.2 1383.2 1183.2 300 1183.2 1183.2 Output Total 450 1250 3492 324 3067 1850 Balance 533.2 133.2 -91.8 -400 -16.8 -666.8 Intake, IV 200 600 400 300 400 400 Intake, Lipid 116.8 116.8 116.8 116.8 116.8 Intake, Oral 0 0 0 0 Intake, Other 0 Intake, 666.4 666.4 666.4 666.4 666.4 TPN/PPN Number 0 0 0 0 Bowel Movements Output, 200 550 500 700 700 850 Gastric Drainage Output, Urine 250 700 536 296 0064 Patient 166 lb 167 lb Weight Weight Bed scale Measurement Method Physical Exam: Well-developed well-nourished no apparent distress. HEENT: Atraumatic, extraocular motion intact Neck: Supple, no lymphadenopathy Respiratory: No respiratory distress Abdomen: Mildly distended, mild tympani, staple line is intact except for the 2 known areas of wound dehiscence. Packing in place which was removed and replaced, purulent drainage noted, mild amount. No surrounding erythema. Appropriate tenderness throughout the abdomen. Positive bowel sounds, hypoactive Extremities: No edema, no calf pain Neuro: Alert and oriented x3 Psych: Mood affect normal, normal memory normal judgment. Skin: Warm and dry, no rash on exposed skin Results Last 48 Hours of Labs: Laboratory Tests 06/20 06/19 06/19 06/18 0650 0725 0530 0845 Chemistry Sodium (137 - 145 mmol/L) Pending 137 125 L 137 Potassium (3.5 - 5.1 mmol/L) Pending 3.8 7.3 *H 3.7 Chloride (98 - 107 mmol/L) Pending 98 89 L 99 Carbon Dioxide (22 - 30 mmol/L) Pending 27 20 L 26 Anion Gap (5 - 16) Pending 12 16 12 BUN (9 - 20 mg/dL) Pending 13 15 Creatinine (0.7 - 1.2 mg/dL) Pending 0.8 0.8 Estimated GFR (>60 ml/min) > 60 > 60 BUN/Creatinine Ratio (7 - 25 %) Pending 16.3 18.8 Phosphorus (2.5 - 4.5 mg/dL) Pending 3.5 9.1 H 3.8 Magnesium (1.6 - 2.3 mg/dL) Pending 2.1 2.5 H 1.9 Total Bilirubin (0.2 - 1.3 mg/dL) 0.9 Direct Bilirubin (< 0.4 mg/dL) 0.7 H AST (17 - 59 U/L) 17 ALT (21 - 72 U/L) 32 Alkaline Phosphatase (< 127 U/L) 92 Total Protein (6.3 - 8.2 g/dL) 6.7 Albumin (3.5 - 5.0 g/dL) 2.8 L Prealbumin (17.6 - 36.0 mg/dL) 13.3 L 12.6 L Triglycerides (<150 mg/dL) 69 670 H Assessment/Plan Assessment/Plan This is a 61-year-old male with past medical history significant for hypertension who is admitted to the surgical service with an SBO, he is postoperative day #12 status post exploratory laparotomy with lysis of adhesions , subsequent PICC placement on 06/12/2017 for prolonged ileus, and now with 2 areas of a surgical site wound infection Continue Nothing by mouth/TPN/NG tube to continuous low wall suction, check multiview x-ray today Encourage incentive spirometry, out of bed Continue when necessary analgesics and antiemetics Continue Rocephin and daily packing to abdominal wounds Continue GI and DVT prophylaxis Continue TPN, IVF, follow am labs Core Measures Venous Thromboembolism VTE Risk Factors Age>40 No Mechanical VTE Prophylaxis d/t N/A MechProphylax Ordered No VTE Pharm Prophylaxis d/t LowRisk-No Interven Req'd
--- NOTE | 2017-06-20 12:31 | RADIOLOGY REPORT ---
EXAMINATION: XR ABDOMEN MULTIPLE VIEWS CLINICAL INDICATION: 61-year-old male with small bowel obstruction. COMPARISON: Abdominal radiographs 06/18/2017 TECHNIQUE: 2 views of the abdomen. FINDINGS: Enteric tube is noted with tip projecting over the region of the gastric fundus, unchanged. Nonspecific mildly distended gas-filled loops of small bowel are noted throughout the abdomen. On the upright radiograph, several air-fluid levels are noted. The degree of distention appears decreased compared to the prior examination. No gross free intraperitoneal air. Bibasilar airspace disease again noted, likely reflecting atelectasis. No acute osseous abnormality. Abdominal surgical skin lolis are present. IMPRESSION: 1. Interval decrease in the degree of small bowel distention. 2. Enteric tube is in stable position with tip in the region of the gastric fundus.
[2017-06-20 14:03] VITALS: BP 138/60
[2017-06-20 22:21] VITALS: BP 144/60
[2017-06-21 07:11] VITALS: BP 138/58
--- NOTE | 2017-06-21 09:23 | PN- General Surgery ---
See Addendum Subjective Subjective: 61 y/o male seen and examined, lying in bed this am. denies nausea or abdominal this comfort this am. He had a small BM this morning. NGT with @350ml since 6pm last night. Review of Systems: patient reports passing gas this am and nausea at a minimum Objective Vital Signs and I&Os Vital Signs Date Time Temp Pulse Resp B/P B/P Pulse O2 O2 Flow FiO2 Mean Ox Delivery Rate 06/21 0711 99.4 98 20 138/58 97 06/20 2221 98.9 97 20 144/60 97 Room Air 06/20 1403 98.5 95 20 138/60 98 Room Air Intake & Output 06/21 1600 06/21 0800 06/21 0000 06/20 1600 06/20 0800 06/20 0000 Intake Total 1183.2 1183.2 1183.2 983.2 1383.2 Output Total 102 613 0494 450 1250 Balance 513.2 533.2 83.2 533.2 133.2 Intake, IV 400 400 400 200 600 Intake, Lipid 116.8 116.8 116.8 116.8 116.8 Intake, Oral 0 0 Intake, 666.4 666.4 666.4 666.4 666.4 TPN/PPN Number 1 0 0 Bowel Movements Output, 220 450 200 550 Gastric Drainage Output, Urine 450 650 650 250 700 Patient 166 lb 166 lb Weight Weight Bed scale Measurement Method Physical Exam: PE -Alert and oriented, in good spirits, pain controlled chest - CTA symmetric, without rales ronchi or wheeze heart- RRR without MRG Abdomen - surgical incision -2open areas with scant drainage -wounds wet-dry dressings lightly placed, no surrounding cellulitis. NTTP without guarding or rebound, pos BS ext - calves soft without edema Admission Lab Results I reviewed the following labs: Laboratory Tests 06/21 0808 Chemistry Sodium (137 - 145 mmol/L) 135 L Potassium (3.5 - 5.1 mmol/L) 4.1 Chloride (98 - 107 mmol/L) 99 Carbon Dioxide (22 - 30 mmol/L) 27 Anion Gap (5 - 16) 10 BUN (9 - 20 mg/dL) 14 Creatinine (0.7 - 1.2 mg/dL) 0.7 Estimated GFR (>60 ml/min) > 60 BUN/Creatinine Ratio (7 - 25 %) 20.0 Phosphorus (2.5 - 4.5 mg/dL) 3.6 Magnesium (1.6 - 2.3 mg/dL) 2.0 Assessment/Plan Assessment/Plan Assessment/Plan 61-year-old male with SBO, he is postoperative day #13 status post exploratory laparotomy with lysis of adhesions, subsequent PICC placement on 06/12/2017 for prolonged ileus, and now with 2 areas of a surgical site wound infection Continue Nothing by mouth/TPN/NG tube to continuous low wall suction NG loss improving, consider claping tube this afternoon. xray -Interval decrease in the degree of small bowel distention. Enteric tube is in stable position with tip in the region of the gastric fundus. adjust TPN continue when necessary analgesics and antiemetics Encourage incentive spirometry, out of bed Continue when necessary analgesics and antiemetics continnue daily packing to abdominal wounds -consider staple removal soon Continue GI and DVT prophylaxis Continue TPN, IVF, follow am labs Core Measures Venous Thromboembolism VTE Risk Factors Age>40 No Mechanical VTE Prophylaxis d/t N/A MechProphylax Ordered No VTE Pharm Prophylaxis d/t LowRisk-No Interven Req'd
[2017-06-21 15:30] VITALS: BP 140/70
[2017-06-21 21:00] VITALS: BP 128/60
[2017-06-22 06:13] LABS: ABSOLUTE BASOPHIL COUNT 0 /CUMM (0.0-0.2); ABSOLUTE EOSINOPHIL COUNT 0.1 /CUMM (0.0-0.7); ABSOLUTE GRANULOCYTE CT 4.9 /CUMM (1.4-6.5); ABSOLUTE LYMPH COUNT 2.1 /CUMM (1.2-3.4); BASOPHIL % 0.4 % (0.0-2.0); EOSINOPHIL % 1.3 % (0-5); GRANULOCYTE % 60.6 % (42.2-75.2); HEMATOCRIT 32.7 % (42-52); MEAN CORPUSCULAR HGB 29.5 PG (27.0-31.0); MEAN CORPUSCULAR HGB CONC 33.2 G/DL (33.0-37.0); MEAN CORPUSCULAR VOLUME 88.8 FL (80.0-94.0); MEAN PLATELET VOLUME 8.1 FL (7.4-10.4); PLATELET COUNT 342 /CUMM (130-400); RBC DISTRIBUTION WIDTH 13.1 % (11.5-14.5); RED BLOOD CELL CT 3.68 /CUMM (4.70-6.10); WHITE BLOOD CELL COUNT 8.1 /CUMM (4.8-10.8)
[2017-06-22 07:04] VITALS: BP 120/58
--- NOTE | 2017-06-22 08:27 | PN- General Surgery ---
See Addendum Subjective Subjective: Patient reports incisional discomfort, denies miriam pain. NGT removed and replaced yesterday after the patient vomited. Denies nausea, vomiting. Reports passing flatus and had a small formed bm yesterday. Requesting liquids today. Offers no other complaints. Objective Vital Signs and I&Os Vital Signs Date Time Temp Pulse Resp B/P B/P Pulse O2 O2 Flow FiO2 Mean Ox Delivery Rate 06/22 0704 98.5 95 18 120/58 97 06/21 2100 99.8 94 18 128/60 94 Room Air 06/21 1530 99.0 96 20 140/70 97 Room Air Intake & Output 06/22 1600 06/22 0800 06/22 0000 06/21 1600 06/21 0800 06/21 0000 Intake Total 1083.2 1183.2 1183.2 1183.2 Output Total 850 1050 2450 670 650 Balance 233.2 -1050 -1266.8 513.2 533.2 Intake, IV 300 400 400 400 Intake, Lipid 116.8 116.8 116.8 116.8 Intake, Oral 0 0 Intake, 666.4 666.4 666.4 666.4 TPN/PPN Number 1 Bowel Movements Output, 250 650 700 220 Gastric Drainage Output, Urine 875 702 5772 450 650 Patient 164 lb 166 lb Weight Physical Exam: Gen - nad HEENT - NGT draining light bilious material Cardiac - S1S2 noted Lungs - CTAB Abd - soft, mildly distended, midline dressing mildly saturated, midline incision with 2 openings in the middle and inferior aspect with packing in place , middle opening with healthy, pink granulation tissue, no spontanous drainge, inferior opening with scant cloudy seropurulent drainage, cleaned with ns and repacked, redressed with gauze and tape, remaining lolis in place, hypoactive bowel sounds, appropriately tender lisa-incisionally, no rebound or guarding noted Current Medications: Current Medications Sig/Albert Start time Last Medication Dose Route Stop Time Status Admin Acetaminophen 1,000 MG Q6P PRN 06/17 1415 AC 06/18 N/A 1 UNIT IV 1844 Dextrose/Sodium 1,000 ML Q20H 06/12 1800 AC 06/22 Chloride IV 0311 Fat Emulsion 350 ML Q24H 06/22 1900 AC Intravenous IV 06/23 1859 Fat Emulsion 350 ML Q24H 06/21 190 AC 06/21 Intravenous IV 06/22 Fat Emulsion 350 ML 1900 06/20 1900 DC 06/20 Intravenous IV 06/21 Heparin Sodium 5,000 UNIT Q8 06/07 2200 AC 06/22 (Porcine) SC 0540 Ketorolac 30 MG .STK-MED ONE 06/21 175 DC Tromethamine IM 06/21 1800 Ketorolac 15 MG Q8P PRN 06/19 0745 AC 06/21 Tromethamine IV 1801 Lorazepam 1 MG QPM PRN 06/12 1045 AC 06/21 IV 2330 Ondansetron HCl 4 MG Q6P PRN 06/17 1800 AC 06/20 IV 1845 Pantoprazole Sodium 40 MG DAILY 06/08 1000 AC 06/21 IV 0916 Phenol 2 SPRAY Q2P PRN 06/07 1830 AC 06/17 EXT 0930 Sodium Chloride 2 SPRAY Q4P PRN 06/17 1015 AC CHACHO Total Parenteral 1 UNIT 06/22 190 AC Nutrition IV 06/23 1858 Total Parenteral 1 UNIT 1900 06/21 1900 AC 06/21 Nutrition IV 06/22 Total Parenteral 1 UNIT 1900 06/20 190 DC 06/20 Nutrition IV 06/21 Results Last 48 Hours of Labs: Laboratory Tests 06/22 06/21 0600 0808 Chemistry Sodium (137 - 145 mmol/L) 136 L 135 L Potassium (3.5 - 5.1 mmol/L) 4.3 4.1 Chloride (98 - 107 mmol/L) 99 99 Carbon Dioxide (22 - 30 mmol/L) 27 27 Anion Gap (5 - 16) 10 10 BUN (9 - 20 mg/dL) 14 14 Creatinine (0.7 - 1.2 mg/dL) 0.8 0.7 Estimated GFR (>60 ml/min) > 60 > 60 BUN/Creatinine Ratio (7 - 25 %) 17.5 20.0 Phosphorus (2.5 - 4.5 mg/dL) 4.1 3.6 Magnesium (1.6 - 2.3 mg/dL) 2.0 2.0 Hematology CBC w Diff NO MAN DIFF REQ WBC (4.8 - 10.8 /CUMM) 8.1 RBC (4.70 - 6.10 /CUMM) 3.68 L Hgb (14.0 - 18.0 G/DL) 10.9 L Hct (42 - 52 %) 32.7 L MCV (80.0 - 94.0 FL) 88.8 MCH (27.0 - 31.0 PG) 29.5 MCHC (33.0 - 37.0 G/DL) 33.2 RDW (11.5 - 14.5 %) 13.1 Plt Count (130 - 400 /CUMM) 342 MPV (7.4 - 10.4 FL) 8.1 Gran % (42.2 - 75.2 %) 60.6 Lymphocytes % (20.5 - 51.1 %) 25.9 Monocytes % (1.7 - 9.3 %) 11.8 H Eosinophils % (0 - 5 %) 1.3 Basophils % (0.0 - 2.0 %) 0.4 Absolute Granulocytes (1.4 - 6.5 /CUMM) 4.9 Absolute Lymphocytes (1.2 - 3.4 /CUMM) 2.1 Absolute Monocytes (0.10 - 0.60 /CUMM) 1.0 H Absolute Eosinophils (0.0 - 0.7 /CUMM) 0.1 Absolute Basophils (0.0 - 0.2 /CUMM) 0 Assessment/Plan Assessment/Plan 61 M a/w SBO, failed conservative measure, now POD 14 s/p ex lap with JOSSE, s/p PICC for prolonged ileus with one inferior surgical site wound infection Keep NPO, IVF NGT, clamping trial Pain regimen prn AXR ordered this am TPN reordered Dressing changes daily GI/DVT ppx on board Consider advancing to clears pending axr Encourage IS, ambulation Will d/w Dr. Matthew Core Measures Venous Thromboembolism VTE Risk Factors Age>40 No Mechanical VTE Prophylaxis d/t N/A MechProphylax Ordered No VTE Pharm Prophylaxis d/t LowRisk-No Interven Req'd
[2017-06-22 10:12] VITALS: BP 148/60
--- NOTE | 2017-06-22 10:29 | RADIOLOGY REPORT ---
EXAMINATION: XR ABDOMEN MULTIPLE VIEWS CLINICAL INDICATION: NG tube continues with a high output. Emesis. Small bowel obstruction. Status post laparotomy with extensive lysis of adhesions. COMPARISON: Several prior KUBs, most recent of which is dated 06/20/2017. CT scan of the abdomen and pelvis dated 06/17/2017. TECHNIQUE: 2 views of the abdomen performed on 5 images. FINDINGS: Midline cutaneous lolis are in place. There is persistent mild gaseous distention of small bowel loops in the abdomen with scattered air-fluid levels on the upright view. Compared to the prior exam, no significant interval change in findings is seen. No evidence of bowel perforation is noted. Enteric tube is seen within the gastric fundus, unchanged. Linear subsegmental atelectasis is seen in the lung bases bilaterally. A right-sided PICC line is in place with tip in the deep SVC. Moderate vertebral spondylosis in the mid and lower lumbar spine is seen. Moderate degenerative changes noted in the left hip joint. Total right hip arthroplasty is partially imaged. IMPRESSION: No significant change in small bowel dilatation and scattered air-fluid levels, suspicious for ongoing small bowel obstruction.
[2017-06-22 14:00] VITALS: BP 140/52
[2017-06-22 22:54] VITALS: BP 144/74
[2017-06-23 07:06] VITALS: BP 127/64
--- NOTE | 2017-06-23 09:04 | PN- General Surgery ---
Subjective Subjective: Large amounts of flatus per patient overnight. No bm. No nausea or vomitting, ngt output verbally reported as 1 liter after return to suction last night. No complaints of chest pain, shortness of breath or difficulty breathing. Is oob, no difficulty voiding. Objective Vital Signs and I&Os Vital Signs Date Time Temp Pulse Resp B/P B/P Pulse O2 O2 Flow FiO2 Mean Ox Delivery Rate 06/23 705 98.7 91 18 127/64 99 Room Air 06/22 2254 98.9 98 20 144/74 99 Room Air 06/22 1400 99.1 97 16 140/52 99 Room Air 06/22 1012 99.1 97 18 148/60 97 Room Air Intake & Output 06/23 1600 06/23 0800 06/23 0000 06/22 1600 06/22 0800 06/22 0000 Intake Total 1872.0 1483.0 1183.2 1083.2 Output Total 300 134 956 7190 Balance 1872.0 1183.0 507.2 233.2 -1050 Intake, IV 400 150 400 300 Intake, Lipid 120.0 44.0 116.8 116.8 Intake, Oral 480 240 0 Intake, Other 200 800 Intake, 672 249 666.4 666.4 TPN/PPN Output, 200 250 650 Gastric Drainage Output, Stool 1 Output, Urine 300 475 600 400 Patient 165 lb 164 lb Weight Weight Bed scale Measurement Method Physical Exam: General: Alert and oriented x3, no acute distress Cardiac: RRR, s1s2 Pulm: CTA bialterally, non-labored respiratory effort Abdomen: Distended, no peritonitic signs on palpation, no guarding. +bs auscultated. Dressing removed, packing changed. No erythema, no foul smelling purulence. Some drainage persists from mid-incision and inferior incision openings. Remainder of lolis approximating incision well, no additional areas of drainage. Extremiteis: Moves all extremities, distal sensation intact. Skin warm and well perfused. DP pulses palpable. Bilateral calves soft and non-tender. No peripheral edema Assessment/Plan Assessment/Plan 61 M a/w SBO, failed conservative measure, now POD 15 s/p ex lap with JOSSE, s/p PICC for prolonged ileus with one inferior surgical site wound infection. High ngt output persists, question resolution of sbo. Diet advanced to clears yesterday, ngt in but clamped, verbal report of high residual output last night. NGT clamped for now, will assess residuals this afternoon, continuing clears for now, continue to monitor bowel function, will consider re-imaging possibly tomorrow if residual output remains high Continue current pain regimen Continue gi/dvt ppx Will continue tpn Continue current wound managment. DR Matthew to see Core Measures Venous Thromboembolism VTE Risk Factors Age>40 No Mechanical VTE Prophylaxis d/t N/A MechProphylax Ordered No VTE Pharm Prophylaxis d/t LowRisk-No Interven Req'd
--- NOTE | 2017-06-23 09:33 | PN- General Surgery ---
Surgical Brief Attending Note Brief Attending Note: clamping trial yesterday ok. started clears without issues. NG residual last night high. continued flatus and small bms. continue clamping trial today. if no better tomorrow, CT with oral contrast through ng.
[2017-06-23 14:37] VITALS: BP 136/60
[2017-06-23 21:14] VITALS: BP 138/60
[2017-06-24 05:55] VITALS: BP 138/60
--- NOTE | 2017-06-24 07:07 | PN- Student ---
Chandana Mcallister 06/24/17 0704: Subjective Subjective: PATIENT STATES HE FEELS BETTER THAN YESTERDAY. REPORTS MULTIPLE EPISODES OF FLATUS AND ONE SOFT BM YESTERDAY. REPORTS ABLE TO TOLERATE JELLO YESTERDAY WITHOUT N/V. OCCASIONAL INCISIONAL PAIN WELL CONTROLLED WITH URRENT PAIN MANAGEMENT. CONTINUES TO BE OOB THROUGHOUT THE DAY AND HAS NO DIFFICULTY WITH URINATION. DENIES N/V, FEVER, CHILLS, HEADACHE, CHEST PAIN, SOB, AND ABDOMINAL PAIN. Objective Objective: VITALS: TEMP: 98.9 DEGREES F PULSE: 91 BPM RESP: 22 BP: 138/60 O2 97% RA I/O: 1183/825 GENERAL: RESTING COMFORTABLY IN BED, A/O X 3, ACTIVELY PARTICIPATED IN EXAM ABDOMEN: DISTENDED, NO ERYTHEMA, DRESSINGS C/D/I, NORMOACTIVE BOWEL SOUNDS IN ALL QUADRANTS, NONTENDER IN ALQUADRANTS, APPROPRIATE INOCENTE-INCISIONAL TENDERNESS, TYMPANIC TO PERCUSSION. CARDIAC: NORMAL RATE, REGULAR RHYTHM, NO MRG PULM: CTAB, NO ACCESSORY MUSCLE USAGE EXTREMITIES: NO EDEMA, NONTENDER, PNEUMATIC COMPRESSION DEVICES IN PLACE. MOTOR AND SENSORY FUNCITON GROSSLY INTACT IN B/L LE. DP PULSES 2+ Results Results: Laboratory Tests 06/24/17 0550: Anion Gap 10, Estimated GFR > 60, BUN/Creatinine Ratio 17.5, Phosphorus 3.6, Magnesium 1.8 06/23/17 0620: Anion Gap 12, Estimated GFR > 60, BUN/Creatinine Ratio 18.8, Phosphorus 4.4, Magnesium 1.9 Assessment/Plan Assessment: PATIENT IS A 61 Y/O MALE POD #16 S/P EX LAP AND JOSSE AFTER FAILED CONSEVATIVE MANAGMENT OF SBO. NGT OUTPUT INCOINSISTENT. PAIN WELL CONTROLLED, BOWEL FUNCTION PROGRESSION WITH + BM, FLATUS, AND BOWEL SOUNDS. TOLERATED ORAL INTAKE WELL YESTERDAY. Plan: POSSIBLE REPEAT CT DUE TO INCONSISTENT NGT OUTPUT CONTINUE NGT CLAMPING TRIAL CONTINUE PAIN MANAGMENT CLEAR DIET/TPN CONTINUE GI/DVT PPX OOB TOLERATED DAILY DRESSING CHANGES Sobia Zhao 06/24/17 0751: Assessment/Plan Assessment: Agree with above assessment and plan. Pt states that he is feeling well after passing flatus and moving bowels. No reported nausea. NG output has lessened. No c/o chest pain, shortness of breath and difficutly breathing. Has been voiding without difficulty. Dressing changed/packing changed, no surrounding erythema, no foul smelling purulence. TPN ordered for today, will continue clear liquid diet, will clamp ngt x6 hours and check residuals. Will discuss plan of care with Dr. aMtthew
--- NOTE | 2017-06-24 09:51 | PN- General Surgery ---
Surgical Brief Attending Note Brief Attending Note: STILL WITH HIGH NG AND BOWEL FUNCTION. PLAN CT ORAL CONTRAST THROUGH NG.
--- NOTE | 2017-06-24 13:37 | CT SCAN REPORT ---
EXAMINATION: CT ABDOMEN AND PELVIS WITH CONTRAST CLINICAL INFORMATION: Continued abdominal distention and high NG tube output status post laparotomy for small bowel obstruction lysis of adhesions. COMPARISON: CT abdomen pelvis dated 06/17/2017 and 06/05/2017. KUB dated 06/20/2017 TECHNIQUE: Multidetector volumetric imaging was performed from the superior aspect of the liver through the pubic symphysis following administration of oral contrast. Sagittal and coronal reformatted images were obtained on the technologist's workstation. DLP: 302.5 mGy-cm FINDINGS: LUNG BASES: There are focal areas of subsegmental atelectasis at both lung bases and in the right middle lobe and lingula. LIVER, GALLBLADDER, AND BILIARY TREE: The liver is normal in size, shape, and attenuation. No focal hepatic lesion or biliary ductal dilatation is present. The gallbladder is partially distended. Coarse calcification, likely representing a gallstone or gallstones in the region of the gallbladder neck unchanged. No pericholecystic inflammatory changes or wall thickening is noted. PANCREAS: The pancreas is normal in appearance and unchanged SPLEEN: The spleen is normal in size and attenuation with no focal findings ADRENAL GLANDS: Normal KIDNEYS AND URETERS: The kidneys are normal in size, shape, and attenuation. No hydronephrosis, hydroureter, or calculi seen. No perinephric stranding. BLADDER: The urinary bladder is moderately full and normal in appearance GASTROINTESTINAL TRACT: There is an NG tube in the stomach. There is continued moderate distention of the stomach with gas and fluid but this is improved since the prior study. There is gas throughout large and small bowel with some continued mild disproportionate distention of fluid and gas-filled small bowel loops but the degree of distention has continued to improve since the most recent prior study. No distinct transition point to suggest ongoing mechanical obstruction is seen. There is gas and stool in the colon to the level of the rectum. No definitive intraperitoneal free air is seen at this time. There is no pneumatosis or bowel wall thickening identified. Some mild edema in the mesenteric fat in the mid and lower abdomen is similar to previous and may be related to postsurgical change. No loculated fluid collection or significant free fluid is seen. ABDOMINAL WALL: There is a midline incision with surgical sutures in the anterior abdominal wall unchanged. No hernia is seen LYMPH NODES: No bulky adenopathy VASCULAR: There is no change in the size and appearance of the abdominal aorta and inferior vena cava PELVIC VISCERA: No mass is seen in the pelvis. There is no free fluid or loculated fluid collection OSSEOUS STRUCTURES: No new bony finding total hip replacement again noted on the right IMPRESSION: Postsurgical changes in the abdomen as described. Continued mild disproportionate distention of small bowel containing air and fluid with gas and stool in the colon. This is improved since the most recent prior study and may represent an ongoing postsurgical ileus. A distinct transition point to indicate continued mechanical obstruction is not defined at this time. No evidence for leak or inflammation There is some bibasilar subsegmental atelectasis in the lungs
[2017-06-24 16:12] VITALS: BP 150/70
[2017-06-24 21:52] VITALS: BP 140/70
[2017-06-25 06:20] VITALS: BP 142/62
[2017-06-25 08:16] LABS: ABSOLUTE BASOPHIL COUNT 0 /CUMM (0.0-0.2); ABSOLUTE EOSINOPHIL COUNT 0.2 /CUMM (0.0-0.7); ABSOLUTE GRANULOCYTE CT 5.2 /CUMM (1.4-6.5); ABSOLUTE MONOCYTE COUNT 0.3 /CUMM (0.10-0.60); BASOPHIL % 0.3 % (0.0-2.0); EOSINOPHIL % 2.6 % (0-5); MEAN CORPUSCULAR HGB CONC 33.8 G/DL (33.0-37.0); MEAN CORPUSCULAR VOLUME 91.7 FL (80.0-94.0); MEAN PLATELET VOLUME 9.3 FL (7.4-10.4); PLATELET COUNT 344 /CUMM (130-400); RBC DISTRIBUTION WIDTH 13.1 % (11.5-14.5); RED BLOOD CELL CT 3.71 /CUMM (4.70-6.10); WHITE BLOOD CELL COUNT 7.7 /CUMM (4.8-10.8)
--- NOTE | 2017-06-25 09:23 | PN- General Surgery ---
Surgical Brief Attending Note Brief Attending Note: STABLE. TOLERATING CLEARS BUT DEVELOPED ABDOMINAL DISTENSION AFTER ORAL CONTRAST. CT SHOWS ILEUS. CONTINUE CARES. CONSIDER NG REMOVAL TOMORROW IF NG OUTPUT LOW OVERNIGHT. CONTINUE CLAMPING ALL DAY WITH CLEAR LIQUIDS.
--- NOTE | 2017-06-25 09:35 | PN- General Surgery ---
Subjective Subjective: Patient doing fairly well this morning. He reports some burping but no hiccuping. He has been passing flatus but no bowel movements. He denies any nausea or vomiting around the NG tube. He is tolerating clear liquids without any difficulty. No other issues or concerns per Nursing. Objective Vital Signs and I&Os Vital Signs Date Time Temp Pulse Resp B/P B/P Pulse O2 O2 Flow FiO2 Mean Ox Delivery Rate 06/25 0620 98.2 97 18 142/62 99 Room Air 06/24 2152 99.6 100 18 140/70 98 Room Air 06/24 1612 98.0 96 20 150/70 98 Room Air Intake & Output 06/25 1600 06/25 0800 06/25 0000 06/24 1600 06/24 0800 06/24 0000 Intake Total 1083.2 1423.2 850.0 1183.2 100 Output Total 445 984 1113 600 825 800 Balance -225 233.2 323.2 250.0 358.2 -700 Intake, IV 300 400 150 400 Intake, Lipid 116.8 116.8 200.0 116.8 Intake, Oral 240 0 100 Intake, 666.4 666.4 500 666.4 TPN/PPN Number 0 Bowel Movements Output, 250 400 600 175 500 Gastric Drainage Output, Urine 225 600 700 650 300 Patient 165 lb 167 lb Weight Physical Exam: General: Alert, awake, no acute distress Abdomen: Distended, soft, tympanitic to percussion with some areas of dullness, nontender to palpation without any rebound or guarding, dressing was taken down midline incision with lolis in place except 2 areas with jeanine, the jeanine were removed and replaced noted to be saturated with purulent fluid, topped with fluff gauze and ABD pad Extremities: No clubbing, cyanosis, or edema Current Medications: Current Medications Sig/Albert Start time Last Medication Dose Route Stop Time Status Admin Acetaminophen 1,000 MG Q6P PRN 06/17 1415 AC 06/18 N/A 1 UNIT IV 1844 Dextrose/Sodium 1,000 ML Q20H 06/12 1800 AC 06/24 Chloride IV 1731 Fat Emulsion 350 ML [address]006/24 1900 AC 06/24 Intravenous IV 06/25 1858 1950 Fat Emulsion 350 ML 06/23 1900 DC 06/23 Intravenous IV 06/24 Heparin Sodium 5,000 UNIT Q8 06/07 2200 AC 06/25 (Porcine) SC 0617 Ketorolac 15 MG Q8P PRN 06/19 0745 AC 06/23 Tromethamine IV 1454 Lorazepam 1 MG QPM PRN 06/12 1045 AC 06/25 IV 0033 Ondansetron HCl 4 MG Q6P PRN 06/17 1800 AC 06/20 IV 1845 Pantoprazole Sodium 40 MG DAILY 06/08 1000 AC 06/24 IV 1048 Patient Medication 1 ED ONE ONE 06/24 1030 DC 06/24 Teaching ED 06/24 1031 1950 Phenol 2 SPRAY Q2P PRN 06/07 1830 AC 06/17 EXT 0930 Sodium Chloride 2 SPRAY Q4P PRN 06/17 1015 AC CHACHO Total Parenteral 1 UNIT 19006/24 1900 AC 06/24 Nutrition IV 06/25 Total Parenteral 1 UNIT 1900 06/23 1900 DC 06/23 Nutrition IV 06/24 Results Last 48 Hours of Labs: Laboratory Tests 06/25 06/25 06/24 0920 0610 0550 Chemistry Sodium (137 - 145 mmol/L) Pending 129 L 137 Potassium (3.5 - 5.1 mmol/L) Pending 6.2 *H 4.3 Chloride (98 - 107 mmol/L) Pending 93 L 100 Carbon Dioxide (22 - 30 mmol/L) Pending 22 27 Anion Gap (5 - 16) Pending 14 10 BUN (9 - 20 mg/dL) Pending 12 14 Creatinine (0.7 - 1.2 mg/dL) Pending 1.0 0.8 Estimated GFR (>60 ml/min) > 60 > 60 BUN/Creatinine Ratio (7 - 25 %) Pending 12.0 17.5 Phosphorus (2.5 - 4.5 mg/dL) Pending 7.2 H 3.6 Magnesium (1.6 - 2.3 mg/dL) Pending 2.6 H 1.8 Hematology CBC w Diff NO MAN DIFF REQ WBC (4.8 - 10.8 /CUMM) 7.7 RBC (4.70 - 6.10 /CUMM) 3.71 L Hgb (14.0 - 18.0 G/DL) 11.5 L Hct (42 - 52 %) 34.0 L MCV (80.0 - 94.0 FL) 91.7 MCH (27.0 - 31.0 PG) 31.0 MCHC (33.0 - 37.0 G/DL) 33.8 RDW (11.5 - 14.5 %) 13.1 Plt Count (130 - 400 /CUMM) 344 MPV (7.4 - 10.4 FL) 9.3 Gran % (42.2 - 75.2 %) 67.0 Lymphocytes % (20.5 - 51.1 %) 26.1 Monocytes % (1.7 - 9.3 %) 4.0 Eosinophils % (0 - 5 %) 2.6 Basophils % (0.0 - 2.0 %) 0.3 Absolute Granulocytes (1.4 - 6.5 /CUMM) 5.2 Absolute Lymphocytes (1.2 - 3.4 /CUMM) 2.0 Absolute Monocytes (0.10 - 0.60 /CUMM) 0.3 Absolute Eosinophils (0.0 - 0.7 /CUMM) 0.2 Absolute Basophils (0.0 - 0.2 /CUMM) 0 Recent Imaging Studies: CT scan of the abdomen and pelvis 06/24/17: GASTROINTESTINAL TRACT: There is an NG tube in the stomach. There is continued moderate distention of the stomach with gas and fluid but this is improved since the prior study. There is gas throughout large and small bowel with some continued mild disproportionate distention of fluid and gas-filled small bowel loops but the degree of distention has continued to improve since the most recent prior study. No distinct transition point to suggest ongoing mechanical obstruction is seen. There is gas and stool in the colon to the level of the rectum. No definitive intraperitoneal free air is seen at this time. There is no pneumatosis or bowel wall thickening identified. Some mild edema in the mesenteric fat in the mid and lower abdomen is similar to previous and may be related to postsurgical change. No loculated fluid collection or significant free fluid is seen. ABDOMINAL WALL: There is a midline incision with surgical sutures in the anterior abdominal wall unchanged. No hernia is seen. Assessment/Plan Assessment/Plan This is a 61-year-old male with a past medical history significant for hypertension who is admitted to the surgical service with an SBO, he is status post exploratory laparotomy with lysis of adhesions on 06/07/17, subsequent PICC placement on 06/12/2017 for prolonged ileus, and now with 2 areas of a surgical site wound infection status post removal of lolis and now undergoing wound care. Plan for today is as follows: 1. Clears/TPN/NG tube to clamp trial with residual check after dinner 2. Ambulate, incentive spirometry, turn, cough, and deep breathing techniques 3. Continue PRN analgesics and antiemetics 4. Will remove stapes at bedside today 5. Continue GI and DVT prophylaxis 6. Continue daily dressing changes 7. Case has been discussed with Dr. Matthew and he is in agreement with the plan of care Problem List: 1. SBO (small bowel obstruction) 2. S/P exploratory laparotomy Core Measures Venous Thromboembolism VTE Risk Factors Age>40 No Mechanical VTE Prophylaxis d/t N/A MechProphylax Ordered No VTE Pharm Prophylaxis d/t LowRisk-No Interven Req'd
[2017-06-25 13:52] VITALS: BP 142/70
--- NOTE | 2017-06-25 14:43 | Patient Discharge Instructions ---
Discharge Instructions General Discharge Information You were seen/treated for: sbo, post-op ileus requiring tpn / ng tube You had these procedures: exploratory laparotomy and lysis of adhesions (06/07) picc line / tpn Watch for these problems: redness, swelling or unusual drainage from incisions, nausea, vomiting, excessive diarrhea, or no bowel movements Do not soak the wound: Yes Daily wet to dry dressings: No No bath, but you may shower: Yes Other wound care: dry guaze dressing change daily, midline, as needed. Diet Continue normal diet: Yes Recommended Diet: Regular Activity Full Activity/No Limits: No Activity Self Limited: Yes Pounds, do NOT lift more than: 10 (x 2weeks) Acute Coronary Syndrome Inclusion Criteria At DC or during hospital stay patient has or had the following: ACS DIAGNOSIS No Discharge Core Measures Meds if any: Prescribed or Continued at Discharge Meds if any: NOT Prescribed or Continued at Discharge Congestive Heart Failure Inclusion Criteria At DC or during hospital stay patient has or had the following: CHF DIAGNOSIS No Discharge Core Measures Meds if any: Prescribed or Continued at Discharge Meds if any: NOT Prescribed or Continued at Discharge Cerebrovascular accident Inclusion Criteria At DC or during hospital stay patient has or had the following: CVA/TIA Diagnosis No Discharge Core Measures Meds if any: Prescribed or Continued at Discharge Meds if any: NOT Prescribed or Continued at Discharge Venous thromboembolism Inclusion Criteria VTE Diagnosis No VTE Type NONE VTE Confirmed by (Test) NONE Discharge Core Measures - Per Current guidelines, there needs to be overlap - treatment for the first 5 days of Warfarin therapy. - If discharged on Warfarin prior to 5 days of - overlap therapy, the patient will need to be - assessed for post discharge needs including - *Post discharge parental anticoagulation - *Warfarin and/or parental anticoagulation education - *Follow up date to check INR post discharge At least 5 days overlap therapy as Inpatient No Meds if any: Prescribed or Continued at Discharge Note: Overlap Therapy is Warfarin and Anticoagulant Meds if any: NOT Prescribed or Continued at Discharge
[2017-06-25 21:12] VITALS: BP 134/66
[2017-06-26 06:22] VITALS: BP 132/62
--- NOTE | 2017-06-26 07:51 | PN- General Surgery ---
See Addendum Subjective Subjective: feeling better, no N/V. no abd pain. passing some flatus, had small bm yesterday, feels like needs to ahve another bm now. had mild nausea last evening , no emesis, ngt put back to wall suction at that time with 150cc out. NGT has been clamped since 7pm, and pt taking clear liquids without issue. no cp/sob. +oob ambulating. +voids Objective Vital Signs and I&Os Vital Signs Date Time Temp Pulse Resp B/P B/P Pulse O2 O2 Flow FiO2 Mean Ox Delivery Rate 06/26 621 98.8 89 18 132/62 97 06/25 2112 98.8 90 18 134/66 97 Room Air 06/25 1352 98.1 102 20 142/70 98 Room Air Intake & Output 06/26 0800 06/26 0000 06/25 1600 06/25 0800 06/25 0000 06/24 1600 Intake Total 1183.2 1423.2 1833.2 1083.2 1423.2 850.0 Output Total 6280 157 9670 900 1100 600 Balance 83.2 1023.2 732.2 183.2 323.2 250.0 Intake, IV 400 400 350 300 400 150 Intake, Lipid 116.8 116.8 116.8 116.8 116.8 200.0 Intake, Oral 240 700 240 Intake, 666.4 666.4 666.4 666.4 666.4 500 TPN/PPN Number 0 1 0 Bowel Movements Output, 0 150 0 300 400 600 Gastric Drainage Output, Stool 1 Output, Urine 8643 506 3185 600 700 Patient 169 lb 165 lb Weight Physical Exam: gen- nad, ngt in place- clamped card-s1s2 rrr pulm- ctab abd- softly distended, nt, +bs throughout, incision with 2 small openings- wound edges clean, no purulence, no erythema. no packing placed, clean dry dressing covering open wounds. ext- calves soft nt bl Results Last 48 Hours of Labs: Laboratory Tests 06/26 06/25 06/25 0540 0920 0610 Chemistry Sodium (137 - 145 mmol/L) 138 136 L 129 L Potassium (3.5 - 5.1 mmol/L) 4.3 4.3 6.2 *H Chloride (98 - 107 mmol/L) 100 99 93 L Carbon Dioxide (22 - 30 mmol/L) 28 27 22 Anion Gap (5 - 16) 10 10 14 BUN (9 - 20 mg/dL) 14 13 12 Creatinine (0.7 - 1.2 mg/dL) 0.8 0.8 1.0 Estimated GFR (>60 ml/min) > 60 > 60 > 60 BUN/Creatinine Ratio (7 - 25 %) 17.5 16.3 12.0 Phosphorus (2.5 - 4.5 mg/dL) 3.9 3.7 7.2 H Magnesium (1.6 - 2.3 mg/dL) 2.0 1.9 2.6 H Total Bilirubin (0.2 - 1.3 mg/dL) 0.8 Direct Bilirubin (< 0.4 mg/dL) 0.5 H AST (17 - 59 U/L) 40 ALT (21 - 72 U/L) 46 Alkaline Phosphatase (< 127 U/L) 110 Total Protein (6.3 - 8.2 g/dL) 6.9 Albumin (3.5 - 5.0 g/dL) 2.8 L Prealbumin (17.6 - 36.0 mg/dL) 23.1 Triglycerides (<150 mg/dL) 94 Cholesterol (< 200 MG/DL) 69 LDL Cholesterol, Calc (65 - 129 mg/dL) 25 L HDL Cholesterol (40 - 60 mg/dL) 26 L Cholesterol/HDL Ratio (0.00 - 4.88 %) 3 Hematology CBC w Diff NO MAN DIFF REQ WBC (4.8 - 10.8 /CUMM) 7.7 RBC (4.70 - 6.10 /CUMM) 3.71 L Hgb (14.0 - 18.0 G/DL) 11.5 L Hct (42 - 52 %) 34.0 L MCV (80.0 - 94.0 FL) 91.7 MCH (27.0 - 31.0 PG) 31.0 MCHC (33.0 - 37.0 G/DL) 33.8 RDW (11.5 - 14.5 %) 13.1 Plt Count (130 - 400 /CUMM) 344 MPV (7.4 - 10.4 FL) 9.3 Gran % (42.2 - 75.2 %) 67.0 Lymphocytes % (20.5 - 51.1 %) 26.1 Monocytes % (1.7 - 9.3 %) 4.0 Eosinophils % (0 - 5 %) 2.6 Basophils % (0.0 - 2.0 %) 0.3 Absolute Granulocytes (1.4 - 6.5 /CUMM) 5.2 Absolute Lymphocytes (1.2 - 3.4 /CUMM) 2.0 Absolute Monocytes (0.10 - 0.60 /CUMM) 0.3 Absolute Eosinophils (0.0 - 0.7 /CUMM) 0.2 Absolute Basophils (0.0 - 0.2 /CUMM) 0 Assessment/Plan Assessment/Plan A- POD19 sp ex lap/brett, with prolonged postop ileus, now tolerating clear liquids with minimal nausea. ngt remains in place though clamped, with stable lytes on tpn, overall improved. P- cont tpn, hl ivf cont clears with ngt clamped. check residual later today, ?pull tube. prn pain meds oob, ambualte will dw Dr. Matthew Core Measures Venous Thromboembolism VTE Risk Factors Age>40 No Mechanical VTE Prophylaxis d/t N/A MechProphylax Ordered No VTE Pharm Prophylaxis d/t LowRisk-No Interven Req'd
[2017-06-26 12:49] VITALS: BP 144/64
[2017-06-26 13:53] VITALS: BP 144/64
[2017-06-26 22:23] VITALS: BP 140/62
[2017-06-27 06:00] VITALS: BP 126/60
--- NOTE | 2017-06-27 07:24 | PN- General Surgery ---
See Addendum Subjective Subjective: Awake, alert NGT inadvertantly pulled by pt yesterday while getting cleaned up. No Nausea since then, tolerating clears, passing flatus, last bm 06/25. Ambulating without difficulty. Objective Vital Signs and I&Os Vital Signs Date Time Temp Pulse Resp B/P B/P Pulse O2 O2 Flow FiO2 Mean Ox Delivery Rate 06/27 0600 98.6 96 16 126/60 98 Room Air 06/26 2223 99.3 96 20 140/62 98 Room Air 06/26 1359 92 06/26 1353 98.0 108 20 144/64 98 Room Air 06/26 1255 90 06/26 1249 98.0 108 20 144/64 98 Room Air Intake & Output 06/27 0806/27 0000 06/26 1600 06/26 0800 06/26 0000 06/25 1600 Intake Total 1023.2 780.0 1483.2 1183.2 1423.2 1833.2 Output Total 718 774 5318 3285 265 8788 Balance 648.2 480.0 383.2 83.2 1023.2 682.2 Intake, IV 50 400 400 350 Intake, Lipid 116.8 116.0 116.8 116.8 116.8 116.8 Intake, Oral 240 650 240 700 Intake, 666.4 664 666.4 666.4 666.4 666.4 TPN/PPN Number 0 0 1 Bowel Movements Output, 0 150 50 Gastric Drainage Output, Stool 1 Output, Urine 068 760 9382 7691 154 9617 Patient 169 lb 169 lb Weight Physical Exam: gen- alert and oriented times three chest: clear anteriorly bilaterally abd- softly distended, nt, +bs throughout, incision with 2 small openings <1cm - wound edges clean, no erythema. no packing, some purulent drainage on the dressing - cotton tip swab eplore - no tracking, dressing changed ext- calves soft nt bl Assessment/Plan Assessment/Plan 61yo male admitted 06/05 with sbo, ex lap on 06/07 with a complicated post op course with an ileus requiring ngt/tpn. Now without ngt for about 20 hours, no nausea on clears Will discuss with Dr Matthew Advance to full liquids Instructed patient to take it very slow with po intake Continue TPN fu labs watch wound closely Core Measures Venous Thromboembolism VTE Risk Factors Age>40 No Mechanical VTE Prophylaxis d/t N/A MechProphylax Ordered No VTE Pharm Prophylaxis d/t LowRisk-No Interven Req'd
[2017-06-27 14:23] VITALS: BP 150/62
[2017-06-27 21:49] VITALS: BP 126/60
[2017-06-28 06:22] VITALS: BP 120/62
--- NOTE | 2017-06-28 07:25 | PN- General Surgery ---
See Addendum Subjective Subjective: Reports ongoing flatus and diarrhea. Tolerating fulls. No nausea. Asking for food. TPN to wean today. Ambulating well. No dizziness. No shortness of breath. No chest pains. Voiding well. Objective Vital Signs and I&Os Vital Signs Date Time Temp Pulse Resp B/P B/P Pulse O2 O2 Flow FiO2 Mean Ox Delivery Rate 06/28 621 98.9 100 20 120/62 99 Room Air 06/27 2149 99.1 96 18 126/60 100 Room Air 06/27 1423 98.3 97 20 150/62 98 Room Air Intake & Output 06/28 0800 04 0000 06/27 1600 06/27 0800 06/27 0000 06/26 1600 Intake Total 885.0 1543.2 1023.2 780.0 1483.2 Output Total 950 300 700 949 294 1617 Balance -65.0 -300 843.2 648.2 480.0 383.2 Intake, IV 40 50 Intake, Lipid 105.0 116.8 116.8 116.0 116.8 Intake, Oral 480 720 240 650 Intake, 300 666.4 666.4 664 666.4 TPN/PPN Number 2 1 0 Bowel Movements Output, Urine 950 300 700 529 671 8481 Patient 170 lb 169 lb Weight Physical Exam: General - alert & oriented x 3. comfortable. no acute distress. Lungs - clear bilaterally. no w/r/r. Cardiac - s1s2. reg. Abdomen - soft. nondistended. active bowel sounds. midline dressing with scant drainage. Extremities - warm bilaterally. no c/c/e. calves soft and nontender b/l. Assessment/Plan Assessment/Plan This 61yo male admitted 06/05 with sbo, s/p ex lap (06/07) with post-op course complicated by an ileus requiring ngt/tpn, tolerating slow diet advancement advance diet wean tpn today oob/ambulation hep sc - dvt ppx check lytes this morning midline dry gauze dressing changed plan for d/c home tomorrow if tolerating regular diet tramadol to be sent to [facility] will need picc line removed tomorrow prior to discharge will d/w Core Measures Venous Thromboembolism VTE Risk Factors Age>40 No Mechanical VTE Prophylaxis d/t N/A MechProphylax Ordered No VTE Pharm Prophylaxis d/t LowRisk-No Interven Req'd
[2017-06-28] MEDS ORDERED: TRAMADOL HCL50 M1 PO ×2 (07:29→08:37)
[2017-06-28 14:02] VITALS: BP 130/72
--- NOTE | 2017-06-28 14:39 | Surgical Discharge Summary ---
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 Home Who Do You Live With? Family Services at Home: None What is Your Primary Language? 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 After 3 days of observation his crampy abdominal pain was unresolved and bowel function failed to return. He was taken the operative room for lysis of adhesions. Operation was quite difficult to do the density of his adhesive disease. Please see operative dictation for details. His postoperative course was marked by severe and prolonged postoperative ileus. Due to his prolonged nothing by mouth status a PICC line was placed and TPN was instituted. Serial x-rays and CT scans all showed an ileus picture. Eventually he had return of bowel function and after clamping trials with his NG tube he was eventually started a diet and advanced. Allergies: Coded Allergies: NO KNOWN ALLERGIES (10/28/15) Significant Procedures: Lysis of adhesions Disposition Summary Disposition Principal Diagnosis: Intestinal obstruction Additional Diagnosis: Prolonged postoperative ileus Discharge Disposition: home or self care Discharge Instructions General Discharge Information Code Status: Full Code Patient's Diet: Regular low residual Patient's Activity: No lifting greater than 20 pounds Follow-Up Instructions/Appts: 2 weeks Medications at Discharge Discharge Medications: Start taking the following new medications: Tramadol HCl (Tramadol HCl) 50 MG TABLET 1 Tablet ORAL EVERY 4-6 HOURS NEEDED as needed for pain control Qty = 30 No Refills Copies To: Korey Pro MD
== END 2017-06-28 19:10 | DRG 336 ==
LOC: DELPENDDIS → ERH 13:05 → EDBEDREQ 17:13 → EDBEDREQSVC 17:20 → ERHI 17:27 → 2NB 17:27 → ENRESERV 17:44 → ENTRNSPT 18:04 → EDTRNSPT 18:12 → EDTRNSPTSTS 18:12 → 2NB 18:20 → CMPTRNSPT 18:41 → 2NB 06-06 08:37 → ENTRNSPT 06-07 20:10 → EDTRNSPTSTS 06-07 20:17 → EDTRNSPT 06-07 20:17 → CMPTRNSPT 06-07 20:34 → ENPENDDIS 06-27 12:17 → ENTRNSPT 06-28 18:46 → 2NB 06-28 19:10 → EDTRNSPTSTS 06-28 19:16 → CMPTRNSPT 06-28 19:29
PROVIDERS: Emergency Medicine; Nurse Practitioner; Physician Assistant; Physician Assistant Surgical
PROC: 0DNE0ZZ Release Large Intestine, Open Approach (ICD-10-PCS; principal; 2017-06-07)
PROC: 0DN80ZZ Release Small Intestine, Open Approach (ICD-10-PCS; 2017-06-07)
DX: K56.52 Intestinal adhesions [bands] with complete obstruction (principal); R45.851 Suicidal ideations; T81.4XXA Infection following a procedure, initial encounter; R11.10 Vomiting, unspecified; K56.7 Ileus, unspecified; K80.20 Calculus of gallbladder without cholecystitis without obstruction; F12.90 Cannabis use, unspecified, uncomplicated
CPT/HCPCS: 2NBP; 87075; 36415; 36592; 71045; 74021; 74022; 74176; 74177; 82436; 87070; 87086; 93005; 93010; 99232; C1769; C9399; J0131; J0696; J1100; J1644; J1885; J2060; J2270; J2405; J7040; J7042; Q9965; S5012